=== PATIENT | male | born 1945 | race American Indian/Alaskan Native ===

== ENCOUNTER 2020-12-05 09:06 | Inpatient (IN) | payer MEDICARE, OTHER ==
[~2020-12-05] VITALS: Ht 165.1 cm; Wt 73.4 kg
[2020-12-05] MEDS ORDERED: LIPITOR20 MG PO (12:42)
[2020-12-05] MEDS ORDERED: METOPROLOL SUCC50 MG PO (12:42)
[2020-12-05] MEDS ORDERED: LISINOPRIL10 MG PO (12:43)
[2020-12-05] MEDS ORDERED: ADULT LOW DOSE81 MG PO (12:43)
[2020-12-05] MEDS ORDERED: VITAMIN D3125 MC1 PO (12:44)
[2020-12-05] MEDS ORDERED: DICLOFENAC SODI75 MG PO (12:45)
--- NOTE | 2020-12-05 15:00 | NUR ---
IN WITH PATIENT TO INSERT A SECOND IV. IV PLACED ON RIGHT HAND. PT TOLERATED WELL. PT WAS BALE TO AMBULATE TO RESTROOM WITH SBA. PT ABLE TO AMBULATE BACK TO BED. PT LAYING DOWN. OFFERED DEPENDS BUT PT DENIED, PLACED THEM IN RESTOOM. CALL LIGHT WITHIN REACH. PT DENIES PAIN AND NAUSEA.
--- NOTE | 2020-12-05 15:17 | NUR ---
MED REC COMPLETE
--- NOTE | 2020-12-05 16:08 | NUR ---
IN TO ASSIST PATIENT TO USE THE RESTROOM, HE IS ABLE TO AMBULATE WITH SBA TO RESTROOM AND BACK TO BED. PT LAYING DOWN WATCHING TV. WATER AT BEDSIDE TABLE. CALL LIGHT WITHIN REACH. PT TOLERATED AMBULATION, VITALS STABLE.
--- NOTE | 2020-12-05 17:06 | NUR ---
ASSISTED PT WITH SBA AMBULATION TO THE RESTROOM, PT WALKS SLOW BUT STEADY. VITALS STABLE DURING ACTIVITY. PT BACK IN BED AND LAYING DOWN WATCHING TV. CALL LIGHT WITHIN REACH.
--- NOTE | 2020-12-05 17:14 | EKG ---
[facility] [address] [facility] [place] [address] Signed Normal sinus rhythm Normal ECG No previous ECGs available Confirmed by PORFIRIO PATEL MD ([id number]) on 12/05/2020 5:14:33 PM Electronically Signed By: PORFIRIO PATEL MD 12/05/20 1714 PATIENT NAME: JUAQUINLEXY G Electrocardiogram DATE OF : 43 PHYSICIAN: PORFIRIO PATEL MD REPORT #: [id number] REPORT IS CONFIDENTIAL AND NOT TO BE RELEASED WITHOUT AUTHORIZATION
--- NOTE | 2020-12-05 17:36 | NUR ---
PT ON THE PHONE WITH HIS . PT ARM PROPPED UP WITH A PILLOW TO AVOID IV MED OCCLUSION. ASSESSEMENT COMPLETE. PATIENT DENIES PAIN OR NAUSEA. VERBALIZES HE IS HUNGRY AND I VERBALLY DISCUSSED THE FOOD RESTRICTIONS. ALL QUESTIONS ANSWERED. PATIENT WATCHING TV IN BED. CALL LIGHT IN PLACE.
--- NOTE | 2020-12-05 19:02 | NUR ---
PT AMBULATED TO THE BATHROOM, NOW BACK IN BED WITH SBA. NEW GOWN PLACED. PATIENT LAYING IN BED WATCHING TV. CALL LIGHT WITHIN REACH.
--- NOTE | 2020-12-05 19:30 | NUR ---
[facility] CARE ASSUMED BY THIS SN AT THIS TIME.
--- NOTE | 2020-12-05 19:54 | NUR ---
IN TO ASSIST PATIENT TO THE BATHROOM. PATIENT ABLE TO AMBULATE WITH MINIMAL ASSISTANCE. PATIENT HAD BM WITH BRIGHT RED BLOOD. PATIENT ASSISTED TO BED. PT HR REMAINS IN THE 80'S. RESPIRATIONS ARE EVEN AND UNLABORED, NO COMPLAITNS OF SHORTNESS OF BREATH. PATIENT HAS NO COMPLAINTS OF PAIN AT THIS TIME.
--- NOTE | 2020-12-05 20:30 | NUR ---
PATIENT REQUESTING TYLENOL FOR NECK AND SHOULD PAIN. PATIENT ALSO STATES THAT PAIN RADIATES TO THE BACK OF THE HEAD. PATIENT STATES " I GET THESE HEADACHES EVERY DAY". PATIENT RATES PAIN AT 3/10 WITH AN ACCEPTABLE PAIN LEVEL OF 2/10. PATIENTS PILLOW REPOSITIONED AND TYLENOL GIVEN. PATIENT HAS NO OTHER COMPLAINTS AT THIS TIME.
--- NOTE | 2020-12-05 21:24 | NUR ---
IN TO ASSIST PATIENT TO THE BATHROOM. PATIENT HAD 100MLS OF BLOODY STOOL. PATIENT ABLE TO AMBULATE WITH MINIMAL ASSISTANCE. PATIENT ASSISTED TO BED. NO OTHER COMPLAITNS AT THIS TIME. CALL LIGHT IN PLACE.
--- NOTE | 2020-12-05 21:45 | NUR ---
IN TO ASSIST PATIENT TO BATHROOM. PATIENT IS A STAND BY ASSIST. PATIENT HAD BLOODY LIQUID STOOL. PATIENT ASSISTED TO BED. NO OTHER COMPLAINTS AT THIS TIME.
--- NOTE | 2020-12-05 22:19 | NUR ---
LAB IN TO DRAW BLOOD. PATIENT RESTING IN BED AT THIS TIME. NO COMPLAINTS. CALL LIGHT IN PLACE.
--- NOTE | 2020-12-05 22:48 | NUR ---
RECEIVED CALL FROM DR PATEL WITH ORDERS TO TRANSFUSE 2 UNITS PRBC NOW, CHECK CBC AFTERWARDS AND KEEP 2 UNITS CROSSMATCHED ON STANDBY.
--- NOTE | 2020-12-05 23:00 | NUR ---
BEFORE INFUSION OF PRBC'S, TWO NURSE VERIFICATION AT PT BEDSIDE. VITAL SIGNS COMPLETED BEFORE TRANSFUSION BEGAN. RN AND RN STUDENT REMAIN AT PT BEDSIDE. UPDATED PLAN OF CARE DISCUSSED WITH PT, ALL QUESTIONS ANSWERED. PT REMAINS ALERT AND ORIENTED. WILL CONTINUE TO CLOSELY MONITOR AT PT BEDSIDE.
--- NOTE | 2020-12-05 23:15 | NUR ---
IN WITH PATIENT DURING BLOOD ADMINISTRATION. VITAL SIGNS CHECKED AFTER 15 MINS. HR REMAINS IN THE 80'S. PATIENTS RESPIRATIONS ARE EVEN AND UNLABORED WITH NO COMPLAINTS OF SHORTNESS OF BREATH. PATIENTS OXYGEN SATURATION REMAINS IN THE HIGH 90'S ON RA. PATIENT HAS NO COMPLAINTS AT THIS TIME. PATIENT IS RESTING IN BED WATCHING TV. THIS SN REMAINS IN THE ROOM WITH PATIENT.
--- NOTE | 2020-12-06 00:06 | NUR ---
IN PATIENTS ROOM TO MONITOR. PATIENT REQUESTS TO USE THE BATHROOM. PATIENT ASSISTED TO THE BEDSIDE COMMODE. PATIENT DID NOT HAVE ANY COMPLAINTS OF LIGHTHEADEDNESS WHEN STANDING. PATIENT ABLE TO TRANSFER WITHOUT COMPLAINT. PATIENT HAD 150MLS OF BLOODY STOOL. PATIENT ASSISTED INTO BED. INCREASED WORK OF BREATHING NOTED. PATIENT STATES THAT HE IS FEELING BETTER SINCE THE BLODD ADMINISTATION AND HAS NO COMPLAINTS.
--- NOTE | 2020-12-06 00:15 | NUR ---
PT PLACED ON BEDPAN. PT HAD LARGE BLOODY STOOL. HEART RATE INCREASED INTO THE LOW 100S WITH MOVEMENT IN BED. RN REMAINS AT BED SIDE. BLOOD CONTINUES TO INFUSE. WILL CLOSELY MONITOR.
--- NOTE | 2020-12-06 00:37 | NUR ---
ASSISTED PATIENT ON THE BED ZHU FOR A BM. PATIETNS HR REMAINS IN THE 80'S. PATIENTS RESPIRATIONS ARE EVEN, OXYGEN SATURATION REMAINS IN THE HIGH 90'S. PATIENT HAD LARGE LIQUID BLOODY BM. PATIENT HAS NO COMPLAINTS AT THIS TIME.
--- NOTE | 2020-12-06 00:45 | NUR ---
DR PATEL UPDATED ON PT'S INCREASE IN BLOODY STOOLS OVER THE LAST TWO HOURS AND INCREASED HEART RATE WITH EXERTION. ALSO REPORTED INCREASED RESPIRATIONS WITH MINIMAL EXERTION. NO NEW ORDERS AT THIS TIME. WILL CONTINUE TO MONITOR.
--- NOTE | 2020-12-06 00:53 | NUR ---
SECOND UNIT OF PRBC NOW INFUSING. RN AT BEDSIDE.
--- NOTE | 2020-12-06 01:03 | NUR ---
THIS SN IN ROOM WITH PATIENT DURING BLOOD ADMINISTRATION. PRE VITALS OBTAINED FOR SECOND UNIT OF BLOOD. BLOOD ADMINISTRATION STARTED AND IN PROGRESS. PATIENT RESTING IN BED. HR REMAINS IN THE 80'S. RESPIRATIONS ARE 18 WITH EVEN BREATHING. PATIENTS OXYGEN SATURATION 97% ON ROOM AIR. PATIENT HAS NO COMPLAINTS OF PAIN OR DISCOMFORT AT THIS TIME.
--- NOTE | 2020-12-06 01:46 | NUR ---
Pt back on bedpan. 200 ml of bloody stool. 2 unit of blood continues to infuse at this time. Pt visible from nurses station. call light within reach. will continue to closely monitor. stool.
--- NOTE | 2020-12-06 03:40 | NUR ---
IN TO DRAW BLOOD. PATIENT RESTING IN BED. PATIENT DOES NOT HAVE COMPLAINTS AT THIS TIME. HR REMAINS IN THE 80'S. RESPIRATIONS ARE EVEN. OXYGEN SATURATION REMAINS IN THE HIGH 90'S. CALL LIGHT IN PLACE.
--- NOTE | 2020-12-06 04:31 | NUR ---
IN TO ASSIST PATIENT ONTO BEDPAN. PATIENT HAS 125ML'S OF MIXED URINE AND BLOODY STOOL. LINEN CHANGED. PATIENT REPOSITIONED. PATIENT HAS NO COMPLAINTS OF PAIN OR DISCOMFORT AT THIS TIME. VITAL SIGNS OBTAINED. HR REMAINS IN THE 80'S AT THIS TIME. RESPIRATIONS EVEN AND UNLABORED. CALL LIGHT IN PLACE.
--- NOTE | 2020-12-06 05:16 | NUR ---
IN TO ASSIST PATIENT TO BED SIDE COMMODE. PATIENT TRANSFERED WITH MINIMAL ASSISTANCE. PTS HR ELEVEATED TO 99 DURING TRANSFER. PATIENT DID NOT COMPLAIN OF LIGHTHEADEDNESS OR SHORTNESS OF BREATH. PATIENT ASSISTED TO BED. CALL LIGHT IN PLACE. NO COMPLAINTS AT THIS TIME.
--- NOTE | 2020-12-06 06:09 | NUR ---
IN TO DRAW MORNING LABS. PATIENT RESTING IN BED. NO COMPLAINTS AT THIS TIME. CALL LIGHT IN PLACE.
--- NOTE | 2020-12-06 06:39 | NUR ---
IN TO ASSIST PATIENT TO BE SIDE COMMODE. PT ABLE TO TRANSFER WITH MINIMAL ASSISTANCE. PT HR ELEVATED TO HIGH 90'S DURING TRANSFER. PATIENT HAD NO COMPLAITNS OF DIZZINESS. PATIENT ASSISTED TO BED. NO COMPLAITNS AT THIS TIME. CALL LIGHT IN PLACE.
--- NOTE | 2020-12-06 07:11 | CONS ---
[facility] [address] [place], [place] [address] Signed DATE OF CONSULTATION: 12/05/2020 CHIEF COMPLAINT: Rectal bleeding. HISTORY OF PRESENT ILLNESS: Elan is a 75-year-old gentleman, who I have met in the recent past when I took care of his . He has had four episodes of rectal bleeding in the last day. He has no pain. He went to the [facility]. They asked him to come to the emergency room for evaluation. He was found to be anemic with hemoglobin 8.7 and a mean cell volume of 74. BUN and creatinine are fine. Other labs fine. He told me of his colonoscopy 12-[address] Desir. He thinks he took antibiotics for diverticulosis. He may have had colonic polyps. No followup colonoscopy to his knowledge. He told me he declined surgery because all his friends after the surgeries. However, he thought he might consider upper and lower endoscopy. He has been admitted to the Internal Medicine Service. He has been hemodynamically stable. No further rectal bleeding at this time. PAST MEDICAL HISTORY: Coronary artery disease, MT, possible colonic polyps, possible diverticulosis, chronic right knee pain, hypertension, hypercholesterolemia, hard of hearing, seasonal allergies, chronic right otitis media, decreased vitamin D, and he has glucose intolerance. PAST SURGICAL HISTORY: Includes cardiac stent and colonoscopy 12 to [address] Desir. SOCIAL HISTORY: He quit smoking. Apparently, he had used alcohol in the past, I do not know about currently. He is to his Marita at . He goes to the [facility] mainly with Darrell Sahni. Dr. Scott Gutierrez is his respooler and Dr. Ildefonso Tate is his orthopedic surgeon. 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 FAMILY HISTORY: Mom of lymphoma. Sister had coronary artery disease. REVIEW OF SYSTEMS: He had 10 systems reviewed and we added the above findings as well as reviewing his notes from the [facility]. He did tell me he is not particularly interested in surgeries. ALLERGIES: Electronically Signed By: IRWIN CROOKS MD 12/06/20 0711 PATIENT NAME: ELAN REZA CONSULTATION DATE OF : 43 REPORT #: [id number] PHYSICIAN: IRWIN CROOKS MD PCP: [facility] REPORT IS CONFIDENTIAL AND NOT TO BE RELEASED WITHOUT AUTHORIZATION [facility] [address] [place], [place] [address] Signed Penicillin cause anaphylaxis. MEDICATIONS: 1. Aspirin. 2. Atorvastatin. 3. Vitamin D. 4. Diclofenac. 5. Lisinopril. 6. Metoprolol. PHYSICAL EXAMINATION: VITAL SIGNS: His blood pressure is 129/78, heart rate 79, respiratory rate 16, temperature is 98.7, and he is 98% on room air. He is 5 feet 5 inches and 72 kg. GENERAL: Elan is a 75-year-old gentleman, appears healthy and at his stated age. He is hard of hearing, but he is a pretty good historian. LUNGS: Clear to auscultation bilaterally. HEART: Regular rate and rhythm, without murmurs. ABDOMEN: Soft, nontender. : We did not perform rectal exam currently. LABORATORY DATA: His white blood cell count 6.5, hemoglobin is 8.7, mean cell volume 74, and platelets 265. BUN 14, creatinine 0.7. COVID negative. INR 1. Liver function tests negative. Albumin is 4.9. RADIOGRAPHIC STUDIES: None. ASSESSMENT/PLAN: Elan is a 75-year-old gentleman, who presents with rectal bleeding today. He has been admitted to the Internal Medicine Service. I have been asked to see him for upper and lower endoscopy. I had a long discussion with Elan regarding the above. He recalls the colonoscopy quite well. He knows there is risk including, but not limited to gas bloating, crampy abdominal pain, bleeding, perforation requiring surgery, and missed diagnosis. Also, because of his advanced age, he would need monitored anesthesia care. He is willing to go through the liquid diet and bowel prep today. I have two surgeries tomorrow morning already scheduled, and he would be sometime in the afternoon. He has expressed understanding and agrees with the above plan. In the meantime, we will try to track down his records from his respooler as well. Irwin Crooks MD Electronically Signed By: IRWIN CROOKS MD 12/06/20 0711 PATIENT NAME: ELAN REZA CONSULTATION DATE OF : 43 REPORT #: [id number] PHYSICIAN: IRWIN CROOKS MD PCP: [facility] REPORT IS CONFIDENTIAL AND NOT TO BE RELEASED WITHOUT AUTHORIZATION [address] [address] Signed ALB/MODL /[id number] cc: MD Scott Guzman MD Bryan Lee Canwell, PA Andrew L Bower, MD Copies: ILDEFONSO TATE MD, JEFFREY M MD CANWELL, BRYAN LEE PA BOWER, ANDREW L MD ~ Electronically Signed By: IRWIN CROOKS MD 12/06/20 0711 PATIENT NAME: REZAELAN CONSULTATION DATE OF : 43 REPORT #: [id number] PHYSICIAN: IRWIN CROOKS MD PCP: [facility] REPORT IS CONFIDENTIAL AND NOT TO BE RELEASED WITHOUT AUTHORIZATION
--- NOTE | 2020-12-06 08:04 | NUR ---
IN PATIENT'S ROOM FOR ASSESSMENT, VITALS, AND TO HELP PT UP TO BSC. PT HAS ADDITIONAL 25 ML BURGUNDY LIQUID STOOL AND VOIDS. PT ASKING, " CAN I HAVE SOME COFFEE?" EDUCATED PATIENT ON NEED TO STAY NPO FOR UPCOMING UPPER/LOWER SCOPE THAT WILL HAPPEN TODAY UNDER DR. CROOKS. PATIENT STATES, " CAN DR. CROOKS CALL MY ? SHE WATNS TO KNOW WHY WE HAVEN'T TAKEN CARE OF THIS BLEEDING YET." DISCUSSED THIS WITH PATIENT AND WILL CALL PT'S AND UPDATE HER ON PATIENT'S STATUS AND PLAN FOR THE DAY. HR IN THE 80-90s SINUS. LAST BP 145/85. PT DENIES PAIN. WILL CONTINUE TO MONITOR.
--- NOTE | 2020-12-06 10:00 | NUR ---
DR. PATEL IN ROOM TO SEE PATIENT. PATIENT EXPRESSING THAT HE IS HOPEFUL TO GO HOME LATER TODAY. DR. PATEL AND PT MAKING A PLAN TO SEE WHAT THE SCOPES REVEAL AND THEN DECIDING WHAT HE WILL DO. PT DENIES PAIN, DISCOMFORT, OR CHEST PAINS.
--- NOTE | 2020-12-06 11:22 | NUR ---
HYDROLOGY TECHNICIAN IN ROOM TO SEE PATIENT. PATIENT NOW BEING TAKEN FOR SCOPE. PT WILL COME BACK TO THIS ROOM AFTER SCOPE. DENTURES AND PATIENT'S WATCH AND RING LEFT AT BEDSIDE TABLE.
--- NOTE | 2020-12-06 12:29 | NUR ---
PATIENT RETURNS FROM UPPER AND LOWER SCOPE AND CARE OF PATIENT RESUMED. PT IS DROWSY BUT AWAKENS EASILY. PT DRIFTS BACK TO SLEEP QUICKLY. SP02 IS 100% ON 2 L NC. WILL TITRATE DOWN TOLERATED. REPORT RECEIVED FROM SALES CENTER ASSOCIATE AND DUST MILL OPERATOR. CONTINUE TO MONITOR.
--- NOTE | 2020-12-06 12:59 | NUR ---
12/06/20 1259 [place] [id number]: THIS RN ASSISTED TUCKING PT INTO CCU RM 129. VERBAL REPORT GIVEN TO DAMON LANG FROM [employer] ANALYSTDAMON ZACARIAS AND KARLENE BERGMAN. PT TRANSFERRED FROM STRETCHER TO BED VIA DRAWSHEET, VSS. DAMON LANG STATES SHE IS COMFORTABLE WITH JEEP MECHANIC EXITING AT THIS TIME.
--- NOTE | 2020-12-06 14:11 | OR ---
[facility] [address] [place], [place] [address] Signed DATE OF OPERATION: 12/06/2020 SURGEON: Irwin Chow MD PREOPERATIVE DIAGNOSES: 1. Rectal bleeding. 2. Anemia. 3. Diverticulosis. 4. Hiatal hernia. 5. Gastroesophageal reflux disease. 6. Daily use of aspirin and diclofenac. POSTOPERATIVE DIAGNOSES: 1. Moderate-sized nonbleeding cardiac gastric ulcer. 2. Moderate-sized hiatal hernia (40-34 cm). 3. Tiny epiphrenic diverticulum. 4. Moderate pandiverticulosis. 5. Small internal and external hemorrhoids. 6. 4 mm polyp at hepatic flexure. 7. Right superior prostate nodule adherent to rectum. PROCEDURES: 1. Esophagogastroduodenoscopy with CLOtest and biopsies of the antrum ulcer and GE junction. 2. Colonoscopy without biopsies. ESTIMATED BLOOD LOSS: None. INDICATIONS: Elan is a 75-year-old gentleman I know because I have helped take care of his . Elan came in to the hospital because he had four episodes of rectal bleeding the day of admission. He started at the [facility] and he was sent into the emergency room. He said he was having no pain in the abdomen or around the anus or rectum. No hematemesis. Although, we found he has a hiatal hernia and acid reflux. He takes no medication for the stomach. In addition, he takes diclofenac each day because of his arthritis, particularly right knee pain. He also takes aspirin for his heart in his single cardiac stent. He also had a colonoscopy around in [address] Desir. That revealed his fairly significant diverticulosis. He had been admitted to the Internal Medicine service and I have been asked to see him as a general surgeon on-call. I met Electronically Signed By: IRWIN CHOW MD 12/06/20 1411 PATIENT NAME: ELAN REZA OPERATIVE REPORT DATE OF : 43 REPORT #: [id number] PHYSICIAN: IRWIN CHOW MD PCP: [facility] REPORT IS CONFIDENTIAL AND NOT TO BE RELEASED WITHOUT AUTHORIZATION [facility] [address] [place], [place] [address] Signed with Elan here in the hospital. Unfortunately, his fell and had fallen, broke her femur and she is not able to get in the hospital at this time. However, Elan does talk with her frequently, has me call over as well. He made it very clear to myself and everyone that he does not want any surgeries. His Marita is aware of that as well. We were able to put him through his bowel prep yesterday and he seemed to take about half of it. He still had some bloody discharge from the anus. He did get 2 units of packed red blood cells. However, he has been hemodynamically stable. I explained to Elan the concept of the upper and lower endoscopy. He had both done back in 2003. He recalls that fairly well. He knows there is risk including, but not limited to gas bloating, crampy abdominal pain, bleeding, perforation requiring surgery, and missed diagnosis. Also because of the advanced age and his current situation, we asked that an anesthesia provider help us with increased monitoring and sedation with propofol. He had expressed understanding and wished to proceed. PROCEDURE NOTE: Elan was taken into the endoscopy suite and placed in the supine semi-recumbent position. A bite block was utilized for the case. He was given IV sedation per nurse seniour insight manager. The adult gastroscope was introduced and advanced under direct visualization of camera. He has a very tiny epiphrenic diverticulum. Just minimal disruption to his Z-line. We could see that he had a moderate-sized hiatal hernia. We measured that from 40 back to 34 cm. There was no blood whatsoever in the stomach or the proximal small bowel. The duodenum and pyloric channel were completely unremarkable. The stomach does show moderate inflammatory changes. We took a biopsy of the antrum for CLOtest as well as pathologic review. When we retroflexed the scope, we could see a moderate sized but nonbleeding hernia up near the cardia. It probably is on the junction of the cardia with the body of the stomach. It is toward the lesser curve side. We went and took a biopsy of that area. We withdrew the scope back up through the area of the hiatal hernia. We saw some indurated tissue just above the Z-line and so we took two biopsies of that area for pathologic review. No obvious gastric or esophageal varices. After this, the gas had been suctioned out and the gastroscope removed. Elan tolerated the upper endoscopy quite well. Elan was then rotated into the left lateral decubitus position. He was maintained on IV sedation with propofol per our nurse seniour insight manager. A digital rectal exam was performed. He does have moderate external hemorrhoids. We later found that he has minimal internal hemorrhoids. Both were nonbleeding. I can feel his prostate gland quite indurated. There is a nodule in the superior right side. The rectum is a bit fixed to that spot and I wonder if that should be more fully evaluated by urologist. The prostate gland is fairly indurated but not particularly enlarged. It is slightly enlarged. After this, the adult colonoscope was introduced and advanced under direct visualization of camera. We made our way up to the sigmoid colon all the way back to the cecum itself. There was blood throughout his colon. It is somewhat fresh. He has pandiverticulosis. Of Electronically Signed By: IRWIN CHOW MD 12/06/20 1411 PATIENT NAME: ELAN REZA OPERATIVE REPORT DATE OF : 43 REPORT #: [id number] PHYSICIAN: IRWIN CHOW MD PCP: [facility] REPORT IS CONFIDENTIAL AND NOT TO BE RELEASED WITHOUT AUTHORIZATION [facility] [address] [place], [place] [address] Signed course, it has the greatest concentration in the sigmoid colon. We found his appendiceal orifice and the ileocecal valve. The scope was then slowly withdrawn. Overall his prep was good. We irrigated and suctioned out the fluid as we went. We spent quite a bit of time in the left colon and sigmoid colon as well. We never could find any active bleeding. He has just a tiny 4 mm polyp and had a hepatic flexure. We left that intact given his current GI bleed. Once we got in the rectum, the scope had been retroflexed and there was no additional pathology noted above the anal canal. After this, the gas was suctioned out, the colonoscope removed. Elan tolerated the procedure quite well. Irwin Chow MD ALB/MODL /[id number] cc: Irwin Chow MD [facility] Copies: IRWIN CHOW MD ~ Electronically Signed By: IRWIN CHOW MD 12/06/20 1411 PATIENT NAME: ELAN REZA OPERATIVE REPORT DATE OF : 43 REPORT #: [id number] PHYSICIAN: IRWIN CHOW MD PCP: [facility] REPORT IS CONFIDENTIAL AND NOT TO BE RELEASED WITHOUT AUTHORIZATION
--- NOTE | 2020-12-06 14:30 | NUR ---
PATIENT UP TO BSC TO VOID AND HAD ANOTHER BURGUNDY LIQUID BM WITH WHAT LOOKED TO BE CLOTS. DISCUSSED WITH PATIENT THE PLAN TO HAVE PATIENT HAVE A NUC MED SCAN ON TUESDAY FOR THE TAGGED RED BLOOD CELL SCAN. PT AGREEABLE AFTER DISCUSSION OF WHAT THIS WOULD ENTAIL. PT DOES HAVE RESERVATIONS ABOUT STAYING IN THE HOSPITAL ANY LONGER, BUT AGREES TO STAY AT THIS TIME. CONTINUE TO MONITOR.
--- NOTE | 2020-12-06 16:32 | NUR ---
PATIENT REMAINS RESTING IN BED. CLEAR LIQUID TRAY PROVIDED FOR PATIENT. PT DENIES WANTING TO GET UP INTO CHAIR AND STATES HE IS MORE COMFORTABLE IN THE BED. PT ALSO TALKS WITH HIS ON THE PHONE. IVF CONTINUE AT 100 ML/HR.
--- NOTE | 2020-12-06 17:31 | NUR ---
PATIENT UP TO VOID AND THEN NEEDS TO USE BSC WELL HE BECOMES SOMEWHAT INCONTINENT OF STOOL. STOOL REMAINS A BURGUNDY LIQUID WITH EVIDENCE OF CLOTS NOTED. PT DENIES FEELING ANY DIFFERENT, AND STATES HE WILL TELL THIS RN IF HE STARTS TO FEEL ANY WORSE OR LIGHTHEADED, OR DIZZY. PT BACK TO BED TO REST. WILL CONTINUE TO MONITOR.
--- NOTE | 2020-12-06 18:44 | NUR ---
DR. HAMILTON IN UNIT AND GIVEN AN UPDATE ON PATIENT'S BLOODY STOOLS. DR. CROOKS CALLED AND ALSO UPDATED. CBC ORDERED FOR 1999. NO FURTHER ORDERS AT THIS TIME. PT HAS NOW HAD 3 BURGUNDY LIQUID STOOLS WITH SOME BLOOD CLOTS EVIDENT IN STOOL. PT IS HAVING INCONTINENCE OF THIS STOOL. REMINDED PATIENT TO USE CALL LIGHT AND TO NOT GET UP ON HIS OWN FOR FALL RISK PREVENTION. PT AGREEABLE. PT REMAINS ON CLEAR LIQUIDS. CONTINUE TO MONITOR.
--- NOTE | 2020-12-06 20:45 | NUR ---
PT CALLS TO USE BSC, UP TO VOID AND HAD SMALL LIQUID RED STOOL. APPROX 50 ML. BACK TO BED. HR REMAINED IN 80'S WHILE UP.
--- NOTE | 2020-12-06 21:28 | NUR ---
CALL TO DR PATEL AND DR CROOKS TO UPDATE WITH RECENT LAB RESULTS. ORDER GIVEN TO TRANSFUSE 1 UNIT PRBC.
--- NOTE | 2020-12-06 22:15 | NUR ---
PRBC'S STARTED INFUSING. PT INFORMED, DENIES NEEDS AT THIS TIME.
--- NOTE | 2020-12-07 | NUR ---
BLOOD HAS COMPLETED INFUSING. PT UP TO USE URINAL AT BEDSIDE WITH ASSIST. ASSESSMENT DONE, PT DENIES NEEDS.
--- NOTE | 2020-12-07 02:00 | NUR ---
PT HAS BEEN GETTING UP APPROX EVERY 30 MINUTES TO VOID 100-200ML AT A TIME AND THEN BACK TO BED. HR REMAINS STEADY WHILE UP, PT IS SEEMING MORE SOB WITH ACTIVITY.
--- NOTE | 2020-12-07 03:15 | NUR ---
PT ASSISTED UP TO USE URINAL, WAS SLIGHTLY SOB WITH MOVING, CRACKLES HEARD IN BASES.
--- NOTE | 2020-12-07 04:15 | NUR ---
PT CALLS TO USE URINAL, ASSISTED WITH URINAL ASSESSMENT DONE AND PT BACK TO BED.
--- NOTE | 2020-12-07 06:30 | NUR ---
PT UP TO VOID AND THEN BACK TO BED, ASKING ABOUT BREAKFAST AND PLAN FOR THE DAY.
--- NOTE | 2020-12-07 08:03 | NUR ---
DR. CROOKS IN ROOM TO SEE PATIENT. PATIENT ASKING, "WHEN CAN I EAT? AND WHEN CAN I GO HOME?" DISCUSSED BOTH OF THESE THINGS WITH DR. CROOKS. OKAY FOR PATIENT TO HAVE A SOFT DIET AND WILL ORDER PATIENT SOME SOFT FOODS. PT GIVEN COFFEE AND MORNING MEDICATIONS. PT UP TO VOID AND HAS A SMALL AMOUNT OF BURGUNDY LIQUID STOOLS. H/H STABLE THIS AM. PLAN FOR TAGGED RED BLOOD CELL SCAN TOMORROW WITH NUCLEAR MEDICINE. PT ASKS DR. CROOKS TO PLEASE CALL HIS TO UPDATE HER ON PLAN. PT NOW SITTING IN CHAIR. WILL CONTINUE TO MONITOR.
--- NOTE | 2020-12-07 08:15 | NUR ---
DR. HAMILTON IN ROOM TO SEE PATIENT. NO FURTHER ORDERS AT THIS TIME. PT IN PLEASANT MOOD.
--- NOTE | 2020-12-07 09:19 | NUR ---
PATIENT UP TO BATHROOM TO VOID AND HAS ADDITIONAL LIQUID BM THAT IS BURGUNDY STILL. UNABLE TO VISUALIZE WELL DUE TO HAPPENING IN THE TOILET. PT THEN GIVEN BED BATH AND TOLERATED WELL. BACK TO BED TO REST. PT IS HOPEFUL HIS IS COMING TO VISIT HIM SOON. CONTINUE TO MONITOR.
--- NOTE | 2020-12-07 12:05 | NUR ---
PATIENT UP TO VOID AND ONLY VOIDS 150 ML OF PRETTY DILUTE URINE. ASKED PATIENT IF HE FEELS LIKE HE IS ABLE TO EMPTY HIS BLADDER, TO WHICH HE STATES HE DOES NOT FEEL LIKE HE DOES AND FIGHTS THIS ISSUE AT HOME. BLADDER SCANNED FOR 438 ML. PT STATES HE DOESN'T FEEL LIKE HE NEEDS TO VOID ANY FURTHER. DISCUSSED WITH PT THE POTENTIAL NEED FOR HIM TO FOLLOW UP WITH UROLOGY. WILL CONTINUE TO MONITOR.
--- NOTE | 2020-12-07 12:50 | NUR ---
DR. HAMILTON CALLED AND UPDATED ON PATIENT AND HIS URINARY RETENTION. NO FURTHER ORDERS AT THIS TIME. PT RESTING IN BED.
--- NOTE | 2020-12-07 17:30 | NUR ---
ASSISTED PATIENT UP TO THE EDGE OF THE BED TO EAT HIS DINNER. PATIENT DENIES ANY OTHER NEEDS AT THIS TIME. WILL CONTINUE TO CLOSELY MONITOR.
--- NOTE | 2020-12-07 17:48 | NUR ---
ASSIST PATIENT UP TO USE THE URINAL AT THE BEDSIDE. PT TOLERATED WELL WITH MINIMAL ASSISTANCE. ASSISTED PT BACK TO BED AND RETURNED HIS BLANKETS. PT ATE DINNER. PT LAYING IN BED WITH TV BACKGROUND NOISE, HEAD OF BED ELEVATED. EYED CLOSED. CALL LIGHT WITHIN REACH. WILL CONTINUE TO MONITOR CLOSELY.
--- NOTE | 2020-12-07 18:27 | NUR ---
ASSISTED PATIENT UP TO USE THE URINAL. PATIENT STEADY ON HIS FEET. PATIENT ASISSTED BACK TO BED WITH JUST CORD MANAGEMENT. PATIENT REQUESTED COFFEE. HALF A CUP OF COFFEE PROVIDED AT THIS TIME. CALL LIGHT IN REACH. WILL CONTINUE TO CLOSELY MONITOR.
--- NOTE | 2020-12-07 19:42 | NUR ---
REPORT RECEIVED FROM DAY SHIFT. PT UP TO USE URINAL THEN BACK TO BED, NO REQUESTS. HR 70'S.
--- NOTE | 2020-12-07 20:37 | NUR ---
UP TO VOID, BACK TO BED. ASSESSMENT DONE.
--- NOTE | 2020-12-08 03:50 | NUR ---
UP TO VOID, BACK TO BED. ASSESSMENT DONE.
--- NOTE | 2020-12-08 05:15 | NUR ---
UP TO VOID, BACK TO BED, NO REQUESTS.
--- NOTE | 2020-12-08 07:40 | NUR ---
PATIENT UP TO CHAIR AND HELPED TO VOID TO URINAL. PT ALSO HAS INCONTINENCE IN ATTENDS AND THESE WERE CHANGED. PT TO HAVE HIS TAGGED RED BLOOD CELL SCAN TODAY AROUND 1000. PT IS EAGER TO D/C HOME AFTER THIS. WILL CONTINUE TO MONITOR.
--- NOTE | 2020-12-08 08:18 | NUR ---
pt up in chair, ate breakfast. Linens changed. vs done no other needs at this time. call light with in reach
--- NOTE | 2020-12-08 08:20 | NUR ---
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 Pt does the house hold chores and cooking. Family assist them with the 105 pound dog, gettin in and out of the house. Pt cont. to drive and shop. He denies needs and plans on dc to home.
--- NOTE | 2020-12-08 08:30 | NUR ---
ASSESSMENT COMPLETE. PT HAS FINE CRACKLES NOTED TO BILATERAL BASES. ENCOURAGING IS USE. PT EATS MUCH OF HIS BREAKFAST HE CAN, BUT ONLY EATS ABOUT 50%. PT DENIES HAVING ANY ABDOMINAL PAIN. PT HAS NOT HAVE A BLOODY BMs SINCE THE PRIOR DAY. LABS PENDING. WILL CONTINUE TO [facility].
--- NOTE | 2020-12-08 09:19 | NUR ---
CASE MANAGMENT IN TO SEE PATIENT. PT REMAINS SITTING IN CHAIR. PT NOW ON THE PHONE WITH HIS BROTHER. HR 80-90s. PT NOTED TO BE USING IS BY HIMSELF.
--- NOTE | 2020-12-08 09:40 | NUR ---
taxi proprietor and rn gave pt bed bath, new gown. no other needs at this time
--- NOTE | 2020-12-08 10:00 | NUR ---
[facility] MED ADDICTION PSYCHIATRIST IN ROOM TO DRAW BLOOD AND THEN WILL TAKE PATIENT DOWN TO N[facility] MED SCAN. PT WILL TRANSFER VIA WHEELCHAIR FOR THIS STUDY.
--- NOTE | 2020-12-08 10:29 | NUR ---
PATIENT TAKEN DOWN TO [facility] FOR SCAN.
--- NOTE | 2020-12-08 11:00 | NUR ---
Clinicals sent to [facility] per requests from his provider.
--- NOTE | 2020-12-08 11:42 | NUR ---
PATIENT RETURNS FROM [facility] MED SCAN AND TOLERATED WELL. PT BACK IN ROOM AND RESTING IN BED. ASSESSMENT AND VITALS COMPLETE.
--- NOTE | 2020-12-08 11:57 | NUR ---
PATIENT REQUESTING TYLENOL FOR HIS RIGHT KNEE PAIN. PT RATES IT A 2/10 AT THIS TIME.
--- NOTE | 2020-12-08 12:25 | NUR ---
PATIENT UP TO CHAIR TO EAT HIS LUNCH. PT IS HAVING MORE KNEE PAIN TODAY AND IT'S HARDER FOR HIM TO PUT WEIGHT ON IT TODAY. WAITING REST RESULTS FROM NUC MED SCAN.
[2020-12-08] MEDS ORDERED: PANTOPRAZOLE SO40 MG PO (13:03)
--- NOTE | 2020-12-08 14:36 | NUR ---
CONNECTED WITH PT HE WAS LEAVING FOLLOWING DC. GAVE ENCOURAGEMENT, PT ACKNOWLEGED.
--- NOTE | 2020-12-09 17:11 | PATH ---
[facility] [address] [place], [place] [address] Signed SPECIMEN(S): A ANTRUM/PYLORUS SPECIMEN(S): B CARDIA BIOPSY SPECIMEN(S): C GE JUNCTION SPECIMEN SOURCE: A. ANTRUM/PYLORUS B. CARDIA BIOPSY C. GE JUNCTION CLINICAL HISTORY: Pre: Severe anemia, GI bleed, possible diverticular bleed. Post: Hiatal hernia, gastritis, small epiphrenic esophageal diverticula, polyp at hepatic flexure, gastric ulcer/cardia, pandiverticulosis, minimal internal hemorrhoids. MICROSCOPIC DESCRIPTION: Histologic sections of all submitted blocks are examined by light microscopy. These findings, together with the gross examination, support the pathologic diagnosis. FINAL PATHOLOGIC DIAGNOSIS: A. Stomach, antrum/pylorus, biopsy: - Antral/oxyntic mucosa with mild chronic, inactive gastritis and focal complete intestinal metaplasia. - Negative for Helicobacter organisms on HE stain. - Negative for dysplasia or malignancy. B. Stomach, cardia, biopsy: - Cardia-oxyntic type mucosa with focal active inflammation and reactive mucosal changes. - Negative for Helicobacter organisms on HE stain. - Negative for dysplasia or malignancy. C. Gastroesophageal junction, biopsy: - Squamocolumnar junctional mucosa with no histopathologic abnormality. - Negative for intestinal metaplasia, dysplasia, or malignancy. NAL:cml:C2NR GROSS DESCRIPTION: Three specimens are received in three containers, labeled "LM." A. The specimen, labeled "LM, 1," and designated on the requisition "antrum/pylorus," is received in formalin and consists of one valenzuela soft tissue fragment that measures 0.3 cm in greatest dimension. The specimen is entirely submitted in cassette (A1). PATIENT NAME: LEXY REZA PATHOLOGY DATE OF : 43 REPORT #: [id number] PHYSICIAN: BILLY PATHOLOGY PCP: [facility] REPORT IS CONFIDENTIAL AND NOT TO BE RELEASED WITHOUT AUTHORIZATION [facility] [address] [place], [place] [address] Signed B. The specimen, labeled "LM, 2," and designated on the requisition "gastric cardia ulcer at 40 cm," is received in formalin and consists of one valenzuela soft tissue fragment that measures 0.3 cm in greatest dimension. The specimen is entirely submitted in cassette (B1). C. The specimen, labeled "LM, 3," and designated on the requisition "GE junction," is received in formalin and consists of two valenzuela soft tissue fragments that measure 0.2-0.3 cm in greatest dimension. The specimen is entirely submitted in cassette (C1). AT (under the direct supervision of a pathologist) The Gross Description was prepared using a voice recognition system. The report was reviewed for accuracy; however, sound-alike word errors, addition and/or deletions may occur. If there is any question about this report, please contact Client Services. PERFORMING LABORATORY: The technical component was performed by [facility] [address] (Performance Management Consultant: Karen Goetz MD; CLIA# [id number]). [facility] [address] [address] (CLIA# [id number]). Diagnostician: Valeria Vazquez MD Pathologist Electronically Signed 12/09/2020 Copies: ~ PATIENT NAME: LEXY REZA PATHOLOGY DATE OF : 43 REPORT #: [id number] PHYSICIAN: BILLY FRANKS PCP: [facility] REPORT IS CONFIDENTIAL AND NOT TO BE RELEASED WITHOUT AUTHORIZATION
== END 2020-12-08 14:22 | disposition home or self-care (01) | DRG 379 ==
LOC: ED 09:06 → CCU 11:58
PROVIDERS: Colon & Rectal Surgery; ADMIT Internal Medicine; ATTEND Internal Medicine
PROC: 30233N1 Transfusion of Nonautologous Red Blood Cells into Peripheral Vein, Percutaneous Approach (ICD-10-PCS; 2020-12-05)
PROC: 0DJD8ZZ Inspection of Lower Intestinal Tract, Via Natural or Artificial Opening Endoscopic (ICD-10-PCS; 2020-12-06)
PROC: 0DB48ZX Excision of Esophagogastric Junction, Via Natural or Artificial Opening Endoscopic, Diagnostic (ICD-10-PCS; principal; 2020-12-06 11:20)
PROC: 0DB68ZX Excision of Stomach, Via Natural or Artificial Opening Endoscopic, Diagnostic (ICD-10-PCS; 2020-12-06 11:20)
DX: K57.31 Diverticulosis of large intestine without perforation or abscess with bleeding (principal); K29.51 Unspecified chronic gastritis with bleeding; D50.0 Iron deficiency anemia secondary to blood loss (chronic); K25.9 Gastric ulcer, unspecified as acute or chronic, without hemorrhage or perforation; K44.9 Diaphragmatic hernia without obstruction or gangrene; Z20.822 Contact with and (suspected) exposure to COVID-19; K63.5 Polyp of colon; N40.2 Nodular prostate without lower urinary tract symptoms; I25.10 Atherosclerotic heart disease of native coronary artery without angina pectoris; I25.2 Old myocardial infarction; K64.4 Residual hemorrhoidal skin tags; K64.8 Other hemorrhoids; G89.29 Other chronic pain; M25.561 Pain in right knee; H91.90 Unspecified hearing loss, unspecified ear; E74.39 Other disorders of intestinal carbohydrate absorption; I10 Essential (primary) hypertension; E78.00 Pure hypercholesterolemia, unspecified; H66.91 Otitis media, unspecified, right ear; Z95.5 Presence of coronary angioplasty implant and graft; Z87.891 Personal history of nicotine dependence; Z88.0 Allergy status to penicillin; Z79.899 Other long term (current) drug therapy; Z79.1 Long term (current) use of non-steroidal anti-inflammatories (NSAID); Z79.82 Long term (current) use of aspirin
CPT/HCPCS: 36415; 78278; 80048; 80053; 82397; 82728; 83540; 83735; 84100; 84153; 84466; 85025; 85610; 85730; 86677; 86850; 86900; 86901; 86920; 93005; 93010; 99285; A9560; C9113; C9803; J2001; J2704; J3010; J7040; J7121; U0003

== ENCOUNTER 2021-04-27 16:32 | Inpatient (IN) | payer MEDICARE, OTHER ==
[~2021-04-27] VITALS: Ht 165.1 cm; Wt 72.2 kg
[~2021-04-27 16:32] MED LIST: ADULT LOW DOSE81 MG PO; DICLOFENAC SODI75 MG PO; LIPITOR20 MG PO; LISINOPRIL10 MG PO; METOPROLOL SUCC50 MG PO; PANTOPRAZOLE SO40 MG PO; VITAMIN D3125 MC1 PO
--- NOTE | 2021-04-27 21:20 | NUR ---
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 ALERT AND ORIENTED. FOUR PERSON ASSIST TO BED FROM STRETCHER. ORDERS RECEIVED. KERR PATENT WITH YELLOW URINE. PT REPORTS RIGHT HIP PAIN 01/15. PRN FOR PAIN ADMINISTERED PER EMAR. SCHEDULED MEDS ADMINISTERED. DR. RICHEY CALLED FOR MAINTENANCE FLUIDS GIVEN PT NPO STATUS AT DC. NEW TELEPHONE ORDERS RECEIVED VERIFIED WITH READ BACK METHOD. DAMON MATTHEW IN ROOM FOR ADMISSION HISTORY.
--- NOTE | 2021-04-27 22:35 | NUR ---
ASSESSMENT COMPLETE. PT REPORTS RIGHT HIP PAIN 5/10. PRN FOR PAIN ADMINISTERED PER EMAR. HEEL PROTECTORS PLACED. BLE CMS INTACT. BRISK CAP REFILL NOTED. PT ORIENTED TO ROOM AND NURSE CALL LIGHT. DENIES QUESTIONS OR CONCERNS AT THIS TIME. CALL LIGHT IN REACH.
--- NOTE | 2021-04-27 23:39 | NUR ---
PT RESTING IN BED WITH EYES CLOSED. RESPIRATIONS EVEN. NO APPARENT DISTRESS.
--- NOTE | 2021-04-28 01:40 | NUR ---
VS AND I&O COMPLETE. PRN FOR PAIN ADMINISTERED FOR RIGHT HIP PAIN PER ORDER. PT NPO. ASSESSMENT COMPLETE. CMS INTACT. BRISK CAP REFILL NOTED. HP IN PLACE. KERR PATENT WITH CONCENTRATED YELLOW URINE. IVF INFUSING WNL. PT DENIES FURTHER NEEDS. CALL LIGHT IN REACH.
--- NOTE | 2021-04-28 02:22 | EKG ---
[facility] [address] [facility] [place] [facility] [place] [address] Signed Normal sinus rhythm Nonspecific ST abnormality Abnormal ECG When compared with ECG of 05-DEC-2020 13:04, No significant change was found Confirmed by PORFIRIO PATEL MD ([id number]) on 04/28/2021 2:21:52 AM Electronically Signed By: PORFIRIO PATEL MD 04/28/21221 PATIENT NAME: REZALEXY Electrocardiogram DATE OF : 43 PHYSICIAN: PORFIRIO PATEL MD REPORT #: [id number] REPORT IS CONFIDENTIAL AND NOT TO BE RELEASED WITHOUT AUTHORIZATION
--- NOTE | 2021-04-28 03:15 | NUR ---
PT RESTIN GIN BED WITH EYES CLOSED. RESPIRATIONS EVEN. NO APPARENT DISTRESS.
--- NOTE | 2021-04-28 05:30 | NUR ---
PRE PROCEDURE WIPE DOWN COMPLETE. PT REPORTS SOME PAIN WITH WIPE DOWN BUT REFUSES PRN FOR PAIN AT THIS TIME. CMS INTACT BLE. HP IN PLACE. KERR PATENT WITH CONCENTRATED URINE. IVF INFUSING WNL. PT ON PHONE TO UPDATE .
--- NOTE | 2021-04-28 06:26 | NUR ---
PT OFF THE FLOOR WITH OR NURSE.
--- NOTE | 2021-04-28 07:32 | NUR ---
ER note and Consult for surgery faxed to Jada at [facility].
--- NOTE | 2021-04-28 07:33 | NUR ---
this rn received report from adam newman. pt is in surgery at this time
--- NOTE | 2021-04-28 08:30 | NUR ---
Spoke with Elan and his , Marita. Pt has recently returned from surgery and listens while we talk. He does answer some questions, but answers most. They live on [address] in a 1 [address] home with ramp. Both use walkers. Marita asks about rehab as she feels she is not able accepting, pt then to go to [facility]. Sent text to Dr. Tate asking if he planned on this pt going to a SNF and for how long as stating she cannot care for him at home. Will go ahead and fax chart to [facility] as, at this time, I am only able to place pt's to one SNF due to Covid Pandemic. Received return text from Dr. Tate,pt will need snf for 6-8 weeks.
--- NOTE | 2021-04-28 08:45 | NUR ---
PT ARRIVED TO THE FLOOR AT THIS TIME VIA BED. PT STATES THAT PAIN IS 5/10 AND IS THIS IS TOLERABLE. LUIS HOSE IN PLACE, CRYO IN PLACE, DRESSING INTACT, CLEAN AND NO NOTED DRAINAGE. PT HAS KERR IN PLACE, THIS RN SENT A UA TO LAB. PT STATES THAT HE NEEDS NOTHING ELSE AT THIS TIME
--- NOTE | 2021-04-28 08:54 | NUR ---
04/28/21 0854 Sharon Mccormack 0754 PT ARRIVED IN PACU SLEEPY WITH NO C/O'S. CRYO CUFF PLACED ON R HIP. 0821 TORADOL 15MG GIVEN IVP PER DR ORDERS. NO C/O'S. 0830 OXYGEN SATS 88% ON RA WITH COUGH, DEEP BREATHING. O2 AT 2L VIA NC PLACED. 0845 TO ROOM 121. REPORT GIVEN TO RN. BED PLUGGED IN.
--- NOTE | 2021-04-28 09:50 | NUR ---
THIS RN IN PTS ROOM TO DO PTS POST OPP VITALS. PT STATES PAIN IS 5/10 AND UNCHANGED, PT THEN 5MINS LATER REPORTED TO THIS RN THAT HE WAS HAVING SHOOTING PAIN IN RIGHT HIP BUT THEN DISAPPEARED. THIS RN EDUCATED PT ABOUT HOW THE SPINAL ANESTHIA WORK. THIS RN REMOVED PTS OXYGEN DUE TO PT SATING GREATER THAN 90% ON ROOM AIR.
--- NOTE | 2021-04-28 10:30 | NUR ---
THIS PT BACK IN PTS ROOM TO GIVE PT 0.5MG OF DILUADID TO HELP EASE PTS PAIN OF 9/10. PT REPORTS CRAMPING AT THE RIGHT HIP INSCION SITE. SITE UNCHANGED. PT DID DESAT TO 88% ON ROOM AIR. THIS RN PLACED PT BACK ON 2L NC FOR SUPPORT
--- NOTE | 2021-04-28 10:59 | NUR ---
THIS RN IN PTS ROOM TO CHECK ON PT FOR POST OPP. PT STATES THAT THE PAIN MED (DILUADID) REALLY "SETTLED ME DOWN", PT REPORTS THAT HIS PAIN IS MUCH IMPROVED AND IS READY FOR A NAP. DRESSING UNCHANGED SINCE LAST CHECK. PT ONLY WANTING TO SIP COFFEE AT THIS TIME
--- NOTE | 2021-04-28 12:02 | NUR ---
THIS RN IN PTS ROOM TO DO POST OPP VITALS. PT APPEARS TO BE RESTING AT THIS TIME WITH DEEP AND EVEN BREATHS NOTED, OXYGEN IN PLACE 1L.
--- NOTE | 2021-04-28 13:07 | NUR ---
Chart faxed to [facility], face sheet, ER note, surgery note.
--- NOTE | 2021-04-28 13:28 | NUR ---
PT SITTING UP IN BED EATING LUNCH. DENIES PAIN OR NEEDS ATT. CALL LIGHT IN REACH. DRESSING CDI, CRYO, SCDS AND TEDS IN PLACE.
--- NOTE | 2021-04-28 14:14 | NUR ---
PATIENT SITTING UP IN BED WATCHING TV. VITALS AND I&O'S CHARTED. HENRI CARE AND CATH CARE DONE. CRYO FILLED. CALL LIGHT IN REACH. NO FURTHER NEEDS AT THIS TIME.
--- NOTE | 2021-04-28 14:50 | NUR ---
Notified by [facility], they will accept Elan. They will not have a bed available until . Let her know I am not sure what day plans to dc, but I don't think it will be until or later.
--- NOTE | 2021-04-28 15:10 | NUR ---
THIS TALKING BOOKS LIBRARY CLERK ASSISSTED PT WITH A SHOWER. PT NOW HAS PERSONAL CLOTHES ON WITH A NEW BRIEF. PT IS IN THE RCLINER. CALL LIGHT IS WITHIN REACH. DAUGHTER IS IN ROOM. NO FURTHER NEEDS AT THIS TIME.
--- NOTE | 2021-04-28 15:30 | NUR ---
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 RATES PAIN AN 8/10 WHILE MOVING. IN ROOM. QUESTIONS REGARDING MEDICATIONS. ANSWERED. PT ASSISTED BACK TO BED BY SHEET METAL ERECTOR AND CRYO BACK IN PLACE.
--- NOTE | 2021-04-28 18:07 | NUR ---
IN ROOM TO DO VITALS. VITALS AND I&O'S CHARTED. PATIENT COMPLAINING OF SOME HIP PAIN. RN NOTIFIED. REPOSITIONED PATIENT AND HE STATED IT FELT BETTER. CALL LIGHT IN REACH. NO FURTHER NEEDS AT THIS TIME. CRYO FILLED.
--- NOTE | 2021-04-28 18:25 | NUR ---
PT CALLED FOR PAIN MEDICATION. GIVEN TRAMADOL AND REPOSITIONED. . RATES 8\10.
--- NOTE | 2021-04-28 19:58 | NUR ---
RECEIVED REPORT FROM DAY SHIFT RN. PATIENT IS RESTING IN BED. NO NEEDS NOTED. CALL LIGHT IN REACH.
--- NOTE | 2021-04-28 21:16 | NUR ---
PATIENT ASSESMENT COMPLETED. VITALS TAKEN AND RECORDED. INTAKE AND OUPUT RECORDED. KERR EMPTIED AND KERR CARE COMPLETED. PATIENT REPORTS 3/10 PAIN SCHEDULED PAIN MEDICATION GIVEN PER ORDER. SCHEDULED MEDICATIONS GIVEN PER ORDER. IV INFUEING PER ORDER. PATIENT HAS SCDS, HEEL PROTECTORS AND TEDHOSE IN PLACE. CRYO REFILLED WITH ICE AND APPLIED TO RIGHT HIP. PATIENT REPOSITIONED IN BED. PATIENT DENIES ANY FURTHER NEEDS. CALL LIGHT IN REACH.
--- NOTE | 2021-04-28 21:31 | NUR ---
DR PATEL IN TO SEE PATIENT. PATIENTS SCHEDULED MEDICATION GIVEN PER ORDER. PATIENT DENIES ANY PAIN. PATIENT DENIES ANY NEEDS. CALL LIGHT IN REACH.
--- NOTE | 2021-04-28 23:46 | NUR ---
PATIENT IS IN BED RESTING WITH EYES CLOSED, OXYGEN SATURATION IS AT 88%. PATIENT PLACED ON 1L VIA NC. PATIENT WOKE BRIEFLY AND DENIES APIN. NO NEEDS NOTED. CALL LIGHT IN REACH.
--- NOTE | 2021-04-29 02:07 | NUR ---
PATIENT REPOSITIONED IN BED. VITALS TAKEN AND RECORDED. KERR EMPTIED. INTKAE AND OUPUT RECORDED. PATIENT REPORTS 5/10 PAIN IN HIS RIGHT HIP. SCHEDULED PAIN MEDICATION GIVEN PER ORDER. PATIENTS CRYO REFILLED WITH ICE AND APPLIED TO RIGHT HIP. PATIENT HAS SCDS, CRYO, AND TEDHOSE IN USE. PATIENT REMAINS ON 1L VIA NC. CPOX IN USE. IV INFUSING PER ORDER. PATIENT DENIES ANY NEEDS. CALL LIGHT IN REACH.
--- NOTE | 2021-04-29 03:36 | NUR ---
PATIENT IS RESTING IN BED WITH EYES CLOSED, CPOX READINGS ARE WNL. CALL LIGHT IN REACH.
--- NOTE | 2021-04-29 06:23 | NUR ---
PATIENT REPOSITIONED IN BED. PATIENTS SCHEDULED MEDICATIONS GIVEN PER ORDER. PATIENT DENIES ANY PAIN. PATIENT DENIES ANY NEEDS. CALL LIGHT IN REACH.
--- NOTE | 2021-04-29 07:30 | NUR ---
RECEIVED REPORT AT 0700. PT AWAKE IN BED. KERR STILL PRESENT DUE TO LOW URINE OUTPUT.
--- NOTE | 2021-04-29 08:45 | NUR ---
PAIN IS WELL CONTROLLED WITH PRN PAIN MEDS AVAILABLE. RIGHT PEDIS PULSES +2, MINIMAL THIGH/HIP EDEMA PRESENT, DRESSING IS C/D/I. URINE OUTPUT HAS NOT BEEN ADEQAUTE ALL NIGHT AND STILL IS NOT ADQUATE THIS MORNING SO FAR. PO INTAKE WAS ENCOURAGED. LOBES ARE CLEAR PT ON ROOM AIR WITH O2 SATS ONLY AT 91%. INSENTIVE SPIROM. WAS GIVEN TO PT. PHYS. THERAPY TO SEE PT SOON.
--- NOTE | 2021-04-29 09:53 | OR ---
[facility] [address] [place], [place] [address] Signed DATE OF OPERATION: 04/28/2021 SURGEON: Ildefonso Tate MD PREOPERATIVE DIAGNOSIS: Right intertrochanteric hip fracture. POSTOPERATIVE DIAGNOSIS: Right intertrochanteric hip fracture. PROCEDURE PERFORMED: Open reduction and internal fixation of right hip. SCIENTIFIC ASSOCIATE: Kaylah Altamirano PA-C. Kaylah was present and critical for all portions of procedure. ANESTHESIA: Spinal. BLOOD LOSS: 100 mL. IMPLANTS: Four-hole DHS with a 95 mm lag screw and four 4.5 mm screws. BRIEF HISTORY: Elan is a 76-year-old gentleman, who was attempting to get water for his dog when he bent over and lost his balance, fell landing on his right hip. He was unable to bear weight, he was taken to the ER. Radiographs showed a minimally displaced intertrochanteric hip fracture. He was admitted to my service last night. Risks and benefits of operative treatment were discussed with him and he elected to proceed. DESCRIPTION OF PROCEDURE: Once consent was obtained, he was taken to the operating room. After adequate anesthesia, he was placed on the fracture table. The left leg was placed in a foot traction, but no traction was applied. This leg was then extended and slightly abducted. The operative leg was placed in a foot traction device and the leg was internally rotated and slight traction was placed to reduce the fracture. It was also slightly adducted. Once this was done, the hip was prepped and draped in a standard Electronically Signed By: ILDEFONSO TATE MD 04/29/21 0953 PATIENT NAME: ELAN REZA OPERATIVE REPORT DATE OF : 43 REPORT #: [id number] PHYSICIAN: ILDEFONSO TATE MD PCP: [facility] REPORT IS CONFIDENTIAL AND NOT TO BE RELEASED WITHOUT AUTHORIZATION [facility] [address], [place] [address] Signed sterile fashion. Using a guide pin, we located the position for the incision. Incision was made through skin and subcutaneous tissue. The IT band was divided longitudinally in a sharp manner. Blunt dissection was undertaken through the vastus lateralis, splitting it longitudinally and elevating it off the lateral femur. A large bone hook was then used to reduce the medial portion of the calcar. The guide pin for the DHS was then placed through the guide on the lateral femur and aligned with the femoral neck. The guide pin was advanced into the center-center position in the femoral head. It was advanced until it was well positioned and then measured to a 95. The triple reamer was then placed over this and reamed until it was well-seated. The 4-hole DHS was then placed over the guide pin and advanced until it was flushed with the lateral femur. It was then centered in the sagittal plane. Four screws were then placed through the plate in a bicortical manner. The bone hook was removed. Fracture stability was excellent and the reduction was good. Final radiographs showed good reduction and good placement of all hardware. The wound was copiously irrigated with antibiotic solution. The IT band was closed with a 2-0 Stratafix, subcutaneous tissue with #0 Stratafix, and the skin with jaci. Acticoat dressing was placed. He was awakened, taken to the recovery room in satisfactory condition. All sponge, needle, and instrument counts were correct. Ildefonso Tate MD BA/FRANK /[id number] Copies: ~ Electronically Signed By: ILDEFONSO TATE MD 04/29/21 0953 PATIENT NAME: ELAN REZA OPERATIVE REPORT DATE OF : 43 REPORT #: [id number] PHYSICIAN: ILDEFONSO TATE MD PCP: [facility] REPORT IS CONFIDENTIAL AND NOT TO BE RELEASED WITHOUT AUTHORIZATION
--- NOTE | 2021-04-29 09:54 | NUR ---
Vitals were completed already within the last hour. I&Os are complete. Patient just talked with doctor. Call light is in reach and patient via chair with PT w/ 2PA, FWW.
--- NOTE | 2021-04-29 10:00 | NUR ---
PT IN ROOM. NO NEW CONCERNS NOTED.
--- NOTE | 2021-04-29 10:15 | NUR ---
In and spoke with pts . She has questions regarding [facility] and all questions answered. Gave her the [facility] brochure and informed he has not yet be accepted, but it looks good. Dr. Tate and Dr. Cristobal discussing treatment for low Iron. I will call her when I know for sure the day pt will be admitted and transported. Marita would like me to call her on her cell phone.
--- NOTE | 2021-04-29 12:00 | NUR ---
URINE OUTPUT STILL NOT ADEQUATE SO FAR. NO NEW CONCERNS NOTED AT THIS TIME.
--- NOTE | 2021-04-29 13:13 | NUR ---
PATIENT'S HAIR SHAMPOO DONE.
--- NOTE | 2021-04-29 13:23 | NUR ---
PAIN 0/10. RIGHT PEDIS PULSE +20, DRESSING STILL C/D/I. O2 SATS WDL NOW AND PULSE OX HAS BEEN TURNED OFF.
--- NOTE | 2021-04-29 13:54 | NUR ---
PATIENT WORKING WITH PT, 2 PERSON ASSIST BACK TO BED. 1400 PAIN MEDICATIONS GIVEN FOR 5/10 PAIN.
--- NOTE | 2021-04-29 14:24 | NUR ---
Notified by Anabell at [facility]. They have covid out break and are unable to accept pt. Will fax chart to [facility]. Called and left a message with Patricia asking if she could take this pt. Called and left a message on 's cell phone. Dr. Cristobal updated.
--- NOTE | 2021-04-29 16:00 | NUR ---
Vitals, I&Os are done. Call light is in reach. Patient was encouraged to drink more water.
--- NOTE | 2021-04-29 16:59 | NUR ---
Vitals, I&Os are complete. Patient is going sleep for a little while. Call light in reach.
--- NOTE | 2021-04-29 17:30 | NUR ---
URINE OUTPUT HAS REMAIND LOW ALL DAY. PO INTAKE HAS BEEN ENCOURAGED AND PT DID INCREASE HIS PO INTAKE SOME. OVERALL PT HAS DENIED RIGHT HIP PAIN FOR MOST OF THE DAY. DRESSING IS C/D/I. PT NOW SL DUE TO FLUID OVERALAD COCNERNS. KERR STILL IN PLACE. TRACE RIGHT HIP EDEMA PRESENT.
--- NOTE | 2021-04-29 18:32 | NUR ---
MD RICHEY WAS CALLED AND UPDATED ON PT.
--- NOTE | 2021-04-29 20:02 | NUR ---
RECEIVED REPORT CELI DAY SHIFT RN. PATIENT IS RESTING IN BED WITH EYES CLOSED, RR 16. CALL LIGHT IN REACH.
--- NOTE | 2021-04-29 20:15 | NUR ---
IN TO ASSIST RN WITH VITALS, KERR EMPTIED AT THIS TIME, CRYO ICE REFILLED, ICE WATER REFILLED NO FURTHER NEEDS AT THIS TIME
--- NOTE | 2021-04-29 20:24 | NUR ---
PATIENT ASSESMENT COMPLETED. VITALS TAKEN AND RECORDED. SCHEDULED MEDICATIONS GIVEN PER ORDER. PATIENT DENIES ANY PAIN. PATIENT REPOSITIONED IN BED. PATIENTS SCHEDULED MEDICATIONS GIVEN PER ORDER. PATIENTS CRYO REFILLED WITH ICE AND APPLIED TO RIGHT HIP. ACTECOTE DRESSING PERSENT ON RIGHT HIP, AND IS C/D/I, NO DRIANAGE NOTED. PATIENT HAS SCDS, HEEL PROTECTORS, AND TEDHOSE IN USE. PATIENTS ICE ATER REFILLED. PATIENT IS DROWSY, BUT AAOX4. PATIENT DENIES ANY NEEDS. CALL LIGHT IN REACH.
--- NOTE | 2021-04-29 22:30 | NUR ---
SCHEDULED MEDICATIONS GIVEN PER ORDER. PATIENT DENIES ANY PAIN. PATIENTS CRYO HAS SUFFICIENT ICE. PATIENT DENIES ANY NEEDS. CALL LIGHT IN REACH.
--- NOTE | 2021-04-30 00:30 | NUR ---
PATIENT IS RESTING IN BED WITH EYES CLOSED, RR 16. CALL LIGHT IN REACH.
--- NOTE | 2021-04-30 03:09 | NUR ---
PATIENTS SCHEDULED MEDICATIONS GIVEN PER ORDER. PATIENT PROVIDED WITH FRESH ICE WATER AND APPLE JUICE. PATIENT REPOSITIONED IN BED. PATIENTS CRYO REFILLED AND PLACED ON PATIENTS RIGHT HIP. PATIENT DENIES ANY PAIN. PATIENT HAS SCDS, TEDHOSE, AND HEEL PROTECTORS IN PLACE. PATIENT DENIES ANY FURTHER NEEDS. CALL LIGHT IN REACH.
--- NOTE | 2021-04-30 06:04 | NUR ---
PATIENTS KERR EMPTIED AND KERR CARE COMPLETED. VITALS TAKEN AND RECORDED. INTAKE AND OUPUT RECORDED. SCHEDULED MEDICATION GIVEN PER ORDER. PATIENT REPOSITIONED IN BED. PATIENTS CRYO REFILLED WITH ICE AND APPLIED TO RIGHT HIP. PATIENTS DRESSING ON RIGHT HIP IS C/D/I. SCDS, TEDHOSE, AND HELL PROTECTORS IN PLACE. PATIENT DENIES ANY PAIN. NO FURTHER NEEDS NOTED. CALL LIGHT IN REACH.
--- NOTE | 2021-04-30 07:21 | NUR ---
REPORT RECEIVED FROM DAMON ANGELO. PT RESTING IN BED WITH EYES CLOSED. RESPIRATIONS EVEN AND UNALBORED. CRYO CUFF AND SCD'S IN PLACE. HEAD OF BED ELEVATED TO 35 DEGREES. PT ALLOWED TO REST. CALL LIGHT WITHIN REACH. BED RAILS UP.
[2021-04-30] MEDS ORDERED: HYDROCODON-ACE1 EA11 PO (07:50)
--- NOTE | 2021-04-30 08:01 | NUR ---
Patient sitting up in bed and eating breakfast. Warm wash cloth offered but refused. Checked [employer]. White board updated, and call light within reach. No further needs at this time.
--- NOTE | 2021-04-30 09:21 | NUR ---
MORNING ASSESSMENT AND MEDICATION DUE. PT RESTING IN BED, FINISHED WITH BREAKFAST. PT DENIES PAIN AND NAUSEA, ABLE TO EST ~25% OF BREAKFAST. PT ORIENTED TO ALL BUT FORGETFUL AT TIMES. BLE REMAIN WEAK. STRONG PLANTAR AND DORSI FLEXION NOTED. PT ABLE TO LIFT LEGS OFF THE BED, LEFT LEG STRONGER THAN RIGHT WHEN LIFTING LEGS OF THE BED. CMS INTACT. FINE CRACKELS NOTED IN LOWER LOBES OF LUNGS. PT DEMONSTRATES USE OF I.S. REACHING 1250-1500ML X5. URINE OUTPUT REMAINS LOW BUT QUANTITY SUFFICIENT AT THIS TIME. VITAL SIGNS STABLE. DRESSING TO RIGHT THIGH C/D/I, NO DRAINGE NOTED. MILD EDEMA IN RIGHT UPPER LEG. CRYO CUFF, SCD'S AND LUIS HOSE IN PLACE. PT DENIES ADDITIONAL REQUESTS OR COMPLAINTS. CALL LIGHT WIHTIN REACH. FAMILY AT BEDSIDE.
[2021-04-30] MEDS ORDERED: ADULT ASPIRIN R81 MG PO (09:57)
--- NOTE | 2021-04-30 10:19 | NUR ---
SALVAGE MACHINE OPERATOR REPORTS TO THIS RN THAT PT WOULD LIKE TO GET BACK TO BED. PT RECENTLY UP WITH PHYSICAL THERAPIST AND NOW UP TO CHAIR. THIS RN TO ROOM TO CHECK ON PT. PT DENIES PAIN AND NAUSEA. EDUCATION DONE WITH PT REGARDING STAYING UP TO CHAIR, PT VERBALIZES UNDERSTANDING AND STATES HE WILL REMAIN UP TO CHAIR. PT OFFERED PAIN MEDICATION, CONTINUES TO DENY PAIN AND DECLINES PAIN MEDIATION. PT REQUESTS A FLU SHOT. ORDER PLACED. PT UPDATED ON PLAN OF CARE AND PLAN FOR DISCHARGE TO REHAB FACILITY. CRYO CUFF REMAINS IN PLACE. NO ADDITIONAL REQUESTS OR COMPLAINTS. CALL LIGHT IN PTS HAND. FAMILY AT BEDSIDE.
--- NOTE | 2021-04-30 11:09 | NUR ---
MED REC COMPLETE
--- NOTE | 2021-04-30 11:51 | NUR ---
THIS RN TO ROOM TO CHECK ON PT. PT REMAINS UP TO CHAIR. PT CONTINUES TO DENY PAIN AND NAUSEA. PT EATING LUNCH. PT UPDATED ON PLAN FOR DISCHRAGE. IV DC'D PER PROTOCOL, JANICE APPLIED. AWAITING PTS NEICE TO ARRIVE WITH PTS CLOTHES. NO ADDITIONAL REQUESTS OR COMPLAINTS. CALL LIGHT WITHIN REACH.
--- NOTE | 2021-04-30 12:55 | NUR ---
LAST SET OF PT VITALS DONE. PT DRESSED IN PERSONAL CLOTHES AND USES FWW TO STAND AND PIVOT TO WHEEL CHAIR. ICE PACKS PLACED ON RIGHT HIP FOR THE DRIVE AND FRESH ICE WATER GIVEN. PT'S NIECE PLANS TO MEET AT FACILITY.
--- NOTE | 2021-04-30 13:06 | NUR ---
REPORT CALLED TO DAMON MONTIEL AT [facility]. PT HAS ALREADY BEEN TAKEN OUT TO MEET WHEELCHAIR VAN BY EDUCATION ADMINISTRATIVE ASSISTANT'S. KERR CATHETER WAS NOT DC'D AND FLORAL ASSOCIATE STATES MENTIONED TAKING IT OUT. NO ORDER PRESENT. DAMON MONTIEL AT FACILITY, STATES SHE WILL CONFIRM ORDER TO HAVE CATHETER REMOVED AND TAKEN OUT WHEN PT ARRIVES TO FACILITY.
== END 2021-04-30 12:50 | disposition home or self-care (01) | DRG 482 ==
LOC: ED 16:32 → MS 20:28
PROVIDERS: ADMIT Specialist; ATTEND Specialist
PROC: 0QS604Z Reposition Right Upper Femur with Internal Fixation Device, Open Approach (ICD-10-PCS; principal; 2021-04-28 07:30)
DX: S72.141A Displaced intertrochanteric fracture of right femur, initial encounter for closed fracture (principal); W18.30XA Fall on same level, unspecified, initial encounter; I25.10 Atherosclerotic heart disease of native coronary artery without angina pectoris; I10 Essential (primary) hypertension; D50.9 Iron deficiency anemia, unspecified; K21.9 Gastro-esophageal reflux disease without esophagitis; E78.5 Hyperlipidemia, unspecified; I25.2 Old myocardial infarction; Z95.5 Presence of coronary angioplasty implant and graft; Z86.73 Personal history of transient ischemic attack (TIA), and cerebral infarction without residual deficits; Z87.891 Personal history of nicotine dependence; Z88.0 Allergy status to penicillin
CPT/HCPCS: 01210; 51702; 73502; 80048; 80053; 80500; 81001; 85025; 85610; 90694; 93005; 93010; 97110; 97116; 97162; 97530; 99285-25; C1713; C9803; J0690; J1170; J1885; J2001; J2250; J2405; J2704; J2795; J3301; J7121; Q0138; U0003

== ENCOUNTER 2022-07-12 09:36 | Inpatient (IN) | payer MEDICARE, OTHER ==
[~2022-07-12] VITALS: Ht 165.1 cm; Wt 67.0 kg
[~2022-07-12 09:36] MED LIST changes: +ADULT ASPIRIN R81 MG PO; +HYDROCODON-ACE1 EA11 PO
[2022-07-12] MEDS ORDERED: CARBIDOPA-LEVO1 EAC1 PO (10:04)
--- NOTE | 2022-07-12 14:59 | NUR ---
PT ORIENTED TO ROOM AND BED CONTROLS. FRESH H20, TV CONTROL, AND TV GUIDE PROVIDED. PT DENIES NEED OF ANYTHING ELSE VERBALIZES UNDERSTANDING OF NEED TO CALL STAFF FOR UP OUT OF BED OR ANY NEEDS OF.
--- NOTE | 2022-07-12 16:39 | NUR ---
PT RESTING EYES CLOSED AWAKENS TO VOICE. DENIES NEED TO TOILET. SATS 97% ON 2 L02 DECRASED TO 1 LPM.
[2022-07-12] MEDS ORDERED: COLACE100 MG PO (16:40)
[2022-07-12] MEDS ORDERED: FLOMAX0.4 MG PO (16:41)
--- NOTE | 2022-07-12 18:30 | NUR ---
PT 02 SATS 96% ON 1 L02. UNDERGARMENT CHANGED PT REPOSITIONED. DENIES FURTHER NEEDS OF
--- NOTE | 2022-07-12 18:33 | NUR ---
PT INCONT OF URINE. SAT PT AT EDGE OF BED W/ASSISTANCE FROM VICTORINO CRESPO. PT WAS UNABLE TO MOVED LEGS TO EDGE OF BED W/P ASSITANCE. WHEN SITTING UP I HAD TO HOLD HIS L SIDE UP HE HAD NO STRENGHT TO HOLD HIMSELF UP. PT WAS UNABLE TO STAND. LAID HIM BACK IN BED, PERFORMED HENRI CARE , CHANGED BRIEF, NEW GOWN. VITALS/IO'S DOCUMETNED. CALL LIGHT IN REACH.
--- NOTE | 2022-07-12 19:05 | NUR ---
REPORT RECEIVED FROM DMAON FELDMAN. PT RESTING IN BED WITH EYES CLOSED. RR EVEN AND UNLABORED. NO NEEDS IDENTIFIED AT THIS TIME. CALL LIGHT IN REACH.
--- NOTE | 2022-07-12 20:00 | NUR ---
IN TO ASSIST DAMON ESTEBAN WITH ATTENDS. PT RESTING IN BED WITH EYES CLOSED. PT AWAKENS AND RESPONDS WHEN ADDRESSED. UPON TURNING PT FOR HENRI CARE SKIN TEAR NOTED TO PTs LEFT BUTTOCK AND LEFT SHOULDER. COSENT FOR PICTURES OF SKIN TEARS OBTAINED. PICTURES TAKEN. NEW ATTENDS IN PLACE. COOL WASH CLOTH TO CLEAN PTs LIPS. PT DENIES ANY OTHER NEEDS AT THIS TIME. CALL LIGHT IN REACH.
--- NOTE | 2022-07-12 21:10 | NUR ---
IN TO ADMINISTER MEDICATION. PT RESTING IN BED WITH EYES CLOSED. RR EVEN AND UNLABORED. PT AWAKENS WHEN ADDRESSED. PT IS ON 1L NC WITH O2 SATS AT 93%. PT TAKES PO MEDICATION WITH NO ISSUES. VITALS COMPLETE. ASSESSMENT COMPLETE. PT DENIES ANY PAIN AT THIS TIME. LUNG SOUNDS DIMINISHED IN TYRESE, CRACKLES IN RLL AND LLL. BOWEL TONES ACTIVE. PT A&O TO SELF, AND PLACE. PT NO A&O TO DATE. WHEN ASKED IF PT KNOWS WHY HE IS HERE PT STATES "FLU," WHEN PT ASKED WHAT YEAR IT IS PT STATES "2021," WHEN ASKED WHAT DATE IT IS PT STATES "I DO NOT KNOW," WHEN ASKED WHAT MONTH IT IS PT STATES "JUNE." VITALS COMPLETE. PT DENIES ANY OTHER NEEDS AT THIS TIME. CALL LIGHT IN REACH. PT VERBALIZED UNDERSTANDING TO USE CALL LIGHT IF PT NEEDS ANYTHING.
--- NOTE | 2022-07-13 02:39 | NUR ---
PT IN BED RESTING. VITALS AND IS AND OS COMPLETE. BRIEF CHECKED. BRIEF SOILED. BRIEF CHANGED BY OCCUPATIONAL HEALTH NURSE SUPERVISOR. NO FURTHER NEEDS. CALL LIGHT WITHIN REACH.
--- NOTE | 2022-07-13 05:02 | NUR ---
ASSESSMENT COMPLETE. LUNG SOUNDS CRACKLES IN RLL AND LLL. EXPIRATORY WHEEZE IN RUL. DIMINISHED IN TYRESE. PT REPORTS NO PAIN AT THIS TIME. PT TITRATED OFF NC. O2 SATS AT 91% ON RA. PT REQUESTING BLANKETS TO BE PLACED OVER HIM, BLANKETS PLACED OVER PT. PT REPORTS NO OTHER NEEDS AT THIS TIME. CALL LIGHT IN REACH.
--- NOTE | 2022-07-13 05:56 | NUR ---
IN ROOM TO ROUND ON PT. PT REQUESTING TO USE COMMODE. 2PA WITH VICTORINO WATTS FROM BED TO COMMODE AND THEN TO CHAIR. BM NOTED. VITALS COMPLETE. IS EDUCATION. PT DEMONSTRATED HOW TO USE IS AND WAS ABLE TO GET TO 1,000ML X1 AND 750ML X3. PT REPORTS NO OTHER NEEDS AT THIS TIME. CALL LIGHT IN REACH. CHAIR ALARM ON.
--- NOTE | 2022-07-13 05:56 | NUR ---
RN RQ HELP TO ASSIST PT TO BSC. PT ASSISTED TO BSC 2 PA. AFTER PT CLEANED BY SHAREPOINT SPECIALIST, PT ASSISTED TO CHAIR 2 PA. CHAIR ALARM SET. VITALS AND IS AND OS COMPLETE. LINEN CHANGE COMPLETE. NO FURTHER NEEDS. CALL LIGHT WITHIN REACH
--- NOTE | 2022-07-13 06:30 | NUR ---
IN TO ANSWER CALL LIGHT WITH VICTORINO WATTS. PT REQUESTING TO USE COMMODE. 2PA FROM CHAIR TO COMMODE AND BACK TO CHAIR. BM NOTED. PT REPORTS NO OTHER NEEDS AT THIS TIME. CALL LIGHT IN REACH. CHAIR ALARM ON.
--- NOTE | 2022-07-13 07:38 | NUR ---
PT DOZING IN RECLINER AT TIME OF SHIFT REPORT. AWAKENS TO VOICE AGREES HE IS COMFORTABLE. CALL LIGHT IN LAP.
--- NOTE | 2022-07-13 08:36 | NUR ---
MED REC COMPLETE
--- NOTE | 2022-07-13 09:15 | NUR ---
PT IN CHAIR. VITALS AND IS AND OS COMPLETE. PT BRIEF CHECKED AND WAS SOILED. I REQ ANOTHER CNAS HELP. OTHER ASSEMBLY STOCK SUPERVISOR IN ROOM TO HELP STAND PT UP AND CHANGE BRIEF. PT BACK IN CHAIR. NO FURTHER NEEDS. CALL LIGHT WITHIN REACH.
--- NOTE | 2022-07-13 09:38 | NUR ---
STAFF REPORT HR 120's CHECKED IN ON PT HIS HR IS 94 AND IRREGULAR. RESTING IN CHAIR DENIES ANY DISCOMFORTS
--- NOTE | 2022-07-13 09:51 | NUR ---
PT CONTINUES IN THE CHAIR AFTER MORNING MEAL, DOZES OFF AND ON AWAKENS TO VOICE. PT AGREES HE IS COMFORTABLE. SATS REMAIN MID 90'S ON RA, NONPRODUCTIVE COUGH CONTINUES. PT USES CALL LIGHT APPROPRIATELY FOR TOILETING.
--- NOTE | 2022-07-13 09:54 | NUR ---
PT CALL LIGHT ANSWERED. PT REQ TO USE BSC TO HAVE BM. 2 CNAS IN ROOM TO STAND PIVOT TO BSC FROM CHAIR. PT CLEANED AND PIVOTED BACK TO CHAIR. NO FURTHER NEEDS. CALL LIGHT WITHIN REACH
--- NOTE | 2022-07-13 12:40 | NUR ---
PT RESTING UPRIGHT IN BED JUST FINISHED NOON MEAL, WELL TOLERATED. NOTE SENT TO DR MAGANA R/T HOME MED FOR [facility] NOT BEING GIVEN. NO ANSWER YET. PT DENIES SOB OR OTHER DISCOMFORTS, CONTINUES ON RA JETT JAUREGUI 'S. CALLS FOR UPDATE STATES PT NORMALLY AMBULATES USING A WALKER AT HOME. 2 PERSON PIVOT TRANSFER TO CHAIR TODAY AND THE SAME COMING BACK.
--- NOTE | 2022-07-13 13:34 | NUR ---
LYING IN BED,JUST FINISHED LUNCH.PATIENT STATES HIS DISCHARGE PLAN IS TO GO HOME WITH HIS WHEN HE IS DISCHARGED. CALLED [employer] FOR MORE INFORMATION.PATIENT USES A WALKER AND PATIENT STATES [employer] IS GOING TO BUY HIM AN ELECTRIC WHEELCHAIR.
--- NOTE | 2022-07-13 14:31 | NUR ---
PT UP TO THE CHAIR WITH P/T
--- NOTE | 2022-07-13 14:53 | NUR ---
NOTIFIED DR MAGANA OF [facility] FOR PT CARBA/LEVA TID. HE AGREES TO REVIEW HOME MEDS AND RESTART
--- NOTE | 2022-07-13 17:13 | NUR ---
pt awake self feeding evening meal. message from given to him. pt is cooperative smiles easily
--- NOTE | 2022-07-13 17:57 | NUR ---
PATIENT SITTING UP IN BED AT THIS TIME. VITALS AND I&O'S CHARTED. PATIENT HAD HIGH TEMP., RN NOTIFIED. PATIENT GIVEN IS TO USE. CALL LIGHT IN REACH. NO FURTHER NEEDS AT THIS TIME.
--- NOTE | 2022-07-13 17:58 | NUR ---
PATIENT GIVEN 650MG OF PO TYLENOL FOR TEMP OF 102.1
--- NOTE | 2022-07-13 19:00 | NUR ---
REPORT RECEIVED FROM DAMON FELDMAN. PT RESTING IN BED WITH EYES CLOSED. RR EVEN AND UNLABORED. NO NEEDS IDENTIFIED AT THIS TIME. CALL LIGHT IN REACH.
--- NOTE | 2022-07-13 21:24 | NUR ---
ASSESSMENT COMPLETE. LUNG SOUNDS CLEAR IN RUL. RLL CRACKLES. LLL CREACLES. TYRESE DIMINISHED. HEART RATE IRREGULAR WITH PULSE AROUND 121. MD AWARE, NEW ORDERS PLACED MY MD SEE OCT. PT ON 2L NC WITH O2 SATS AT 94%. BOWEL TONES ACTIVE. PT DENIES ANY PAIN AT THIS TIME. CALL LIGHT IN REACH. PT DENIES ANY OTHER NEEDS AT THIS TIME.
--- NOTE | 2022-07-13 22:09 | NUR ---
MD TO FLOOR, NOTIFIED OF pt VS. MD TO REVIEW CHART, WRITE ORDERS.
--- NOTE | 2022-07-14 00:39 | NUR ---
PT INCONTINENT OF URINE. URBANO RN IN TO ASSIST WITH HENRI CARE. IV PUMP ALARMING, BOLUS FINISHED. PT TURNED WITH PILLOW PLACED UNDER LEFT SIDE. PT REPORTS NO OTHER NEEDS AT THIS TIME. CALL LIGHT IN REACH.
--- NOTE | 2022-07-14 05:48 | NUR ---
[employer] DOWN TIME FROM 0100 TO 0545. SEE PAPER CHARTS.
--- NOTE | 2022-07-14 06:01 | NUR ---
ASSESSMENT COMPLETE. LUNG SOUNDS CLEAR IN RUL. CRACKLES IN RLL AND TYRESE. CRACKLES AND DIMINISHED IN LLL. O2 SATS AT 96% ON 2LNC. HEART RHYTHM TACHYCARDIA. BOWEL TONES ACTIVE. PT INCONTINENT OF URINE. VICTORINO ARNOLD IN ROOM TO ASSIST WITH HENRI CARE. NEW DRAW SHEET AND MIRIAM PAD PLACED WHILE PERFORMING HENRI CARE. PT REPORTS NO OTHER NEEDS AT THIS TIME. CALL LIGHT IN REACH. BED ALARM ON.
--- NOTE | 2022-07-14 07:15 | NUR ---
recieved shift report. pt resting in bed, eyes closed. breathing even and unlabored. call light within reach
--- NOTE | 2022-07-14 09:45 | NUR ---
MORNING ASSESSMENT COMPLETE. PT SITTING IN RECLINER, AWAKE. BALLET PROFESSOR REPORTED 1PA, FWW WITOUT DIFFICULTY. 1.5L NC IN PLACE, SPO2 96%. BREATHING EVEN AND UNLABORED. TACHYPNEIC, RR 24. LEFT UPPER LOBE CLEAR, CRACKLES HEARD IN RIGHT UPPER AND BILAT LOWER LOBES. NON-PRODUCTIVE LOOSE COUGH. DENIES PAIN AT THIS TIME. CALL LIGHT WITHIN REACH.
--- NOTE | 2022-07-14 11:20 | NUR ---
PATIENT UP TO BSC FROM CHAIR, 1PA FWW. PATIENT HAD BM. HENRI CARE DONE. NEW ATTENDS IN PLACE. PATIENT THEN BACK TO CHAIR, 1PA FWW. CALL LIGHT IN REACH. NO FURTHER NEEDS AT THIS TIME.
--- NOTE | 2022-07-14 11:46 | NUR ---
SITTING IN BED AND WATCHING TV. PATIENT STATES HE FEELS BETTER TODAY. PATIENT PLANS TO GO HOME ON DISCHARGE.PATIENT STATES HIS IS SICK.PATIENT STATES HE HAS LOTS OF FAMILY THAT CAN HELP WITH CARE ON DISCHARGE. NO CHANGE IN DC PLAN AT THIS TIME.
--- NOTE | 2022-07-14 15:42 | NUR ---
AFTERNOON ASSESSMENT COMPLETE. LUNG SOUNDS CLEAR IN RUL. CRACKLES HEARD TYRESE AND BILAT LOWER. PRODUCTIVE, MOIST COUGH. SPO2 97% ON 1.5L NC. DENIES PAIN AND ANY FURTHER NEEDS. CALL LIGHT WITHIN REACH.
--- NOTE | 2022-07-14 19:20 | NUR ---
REPORT RECEIVED FROM DAMON ARRINGTON AND FRANKLIN RN. PT RESTING IN BED. PT RESPONDS WHEN ADDRESSED. RR EVEN AND UNLABORED. PT ON 2L NC. PT REPORTS NO NEEDS AT THIS TIME. CALL LIGHT IN REACH.
--- NOTE | 2022-07-14 21:10 | NUR ---
IN TO ADMINISTER MEDICATIONS. PT TAKES PO MEDICATIONS. ASSESSMENT COMPLETE. LUNG SOUNDS CRACKLES IN TYRESE. CRACKLES AND DIMINISHED IN LLL. CRACKLES IN RLL. BOWEL TONES ACTIVE. HEART TONES IRREGULAR. NEW PAD PLACED IN ATTENS BY DAMON LLOYD. PT REPORTS NO OTHER NEEDS AT THIS TIME. CALL LIGHT IN REACH.
--- NOTE | 2022-07-15 02:21 | NUR ---
IN TO ROUND ON PT. PT AWAKE WHEN ENTERING ROOM. UPON ENTERING ROOM THIS RN NOTICED PTs IV IN LEFT WRIST WAS PULLED OUT. WHEN ASKING THE PT WHAT HAPPENED TO HIS IV PT STATES "I WAS REMOVING THE TAPE, DO YOU HAVE MORE TAPE?" THIS RN INFORMED PT THAT HE DID NOT NEED ANY MORE TAPE AT THE IV WAS OUT OF HIS ARM. ASSESSMENT COMPLETE. EXPIRATORY WHEEZE THROUGHOUT ALL LOBES OF THE LUNGS. DIMINISHED IN RLL. PT HAD REMOVED NC. SPOT CHECKED O2 SATS WITH O2 AT 93% ON RA. LEFT PT ON RA. HEART RHYTHM IRREGULAR. BOWEL TONES ACTIVE. PT A&O TO SELF, MONTH, YEAR AND PLACE. PT INCONTINENT OF URINE. VICTORINO ARNOLD IN ROOM TO ASSIST WITH HENRI CARE. ALLEVYN TO LEFT BUTTOCK REMOVED AND NEW ALLEVYN IN PLACE. PT BOOSTED BACK UP IN BED. PT REPORTS NO OTHER NEEDS AT THIS TIME. CALL LIGHT IN REACH.
--- NOTE | 2022-07-15 07:37 | NUR ---
recieved shift report. pt in recliner, awake. call light within reach.
--- NOTE | 2022-07-15 10:05 | NUR ---
MORNING ASSESSMENT COMPLETE. PT SITTING IN CHAIR. DENIES PAIN. WHEEZES HEARD BILAT UPPER LOBES, COURSE BILAT LOWER. SPO2 91% ON RA, PLACED ON 1.2L NC, SPO2 95%. PRODUCTIVE, LOOSE COUGH. PT ABLE TO COUGH UP SPUTUM. BREATHING EVEN, UNLABORED, TACHYPNEIC, RR 36. CALL LIGHT WITHIN REACH. DENIES FURTHER NEEDS.
--- NOTE | 2022-07-15 10:05 | NUR ---
VITALS/I&O'S DOCUMENTED, CHECKED PT BRIEF (DRY), CHANGED INTO NEW GOWN, REPOSITIONED IN CHAIR. WATER REFILLED. CALL LIGHT ON LAP.
--- NOTE | 2022-07-15 10:45 | NUR ---
Spoke with Elan. Discussed report from PT and he would benefit from placement to a SNF for rehab. He states he has does not in the past. Let him know [facility] and [facility] currently have beds open. He states he does not want to go to [facility] as he has been there in the past. He would prefer [facility] in [place]. Let him know I will send his chart. He asks I call his Marita and confirm with her. Called Marita at work and she is not in. Called home, and she is there as she has also been sick. She told Elan she was at work as she didn't want him to worry. She would like him to go to a SNF as she states he was not walking prior to getting the flu. She prefers [facility] also, but states she would take [facility] if [facility] doesn't have a bed. Let her know Ill send his chart. I asked if [facility] will pay the copay, if he needs more than 20 days. She confirms they will as she works for them. She asks I call Desi Dunn at [phone] and she will confirm.
--- NOTE | 2022-07-15 10:58 | NUR ---
Face sheet, vaccine note, H&P, progress note, PT/OT notes and quad covid test with +influenza A test faxed to [facility].
--- NOTE | 2022-07-15 13:54 | NUR ---
Received a call from Nicole at [facility]. She states concern pt only has 1 insurance. Let her know per the , Bryson with pay the copay if he requires more than 20 days. Let her know I have called and spoke with Desi Dunn at the [facility] and she will call her to confirm they will pay the copay. She states pts need 5 days from the time of +test before they can admit to their SNF. This would make it on Sat. She will check if they have staff to admit on Sat. and let me know. If they don't have staff, admission would be on Mon.
--- NOTE | 2022-07-15 14:47 | NUR ---
AFTERNOON ASSESSMENT COMPLETE. PT SITTING IN CHAIR. NO NEW CHANGES FROM MORNING ASSESSMENT. PT ON 1L NC, SPO2 92%. LOOSE, PRODUCTIVE COUGH AND IS ABLE TO COUGH UP SPUTUM. CALL LIGHT WITHIN REACH, DENIES FURTHER NEEDS.
--- NOTE | 2022-07-15 19:10 | NUR ---
RECEIVED REPORT FROM MURPHY JOSE. PT IS RESTING IN RECLINER WATCHING TV AT THIS TIME. CALL LIGHT WITHIN REACH.
--- NOTE | 2022-07-15 20:15 | NUR ---
IN TO GET VS, PT INCONT, NEW ATTENDS ON, 1PA PIVOT TO THE BED, ALARM SET
--- NOTE | 2022-07-15 21:45 | NUR ---
IN PT ROOM FOR AVIAN KEEPER AND ASSESSMENT. PT IS LAYING IN BED DROWSY BUT ORIENTED TO ONLY SELF AND EVENT AT THIS TIME. PT HAS INFREQUENT, NONPRODUCTIVE COUGH AND LUNGS HAVE WHEEZES THROUGHOUT W/DIMINISHED IN BASES. PT ON RA. PT REPORTS NO PAIN, NAUSEA, DIZZINESS, SOB, OR N/T AT THIS TIME. PT FAVORS LEFT SIDE AND WEAKNESS PRESENT THROUGHOUT. CALL LIGHT WITHIN REACH, NO FURTHER NEEDS AT THIS TIME.
--- NOTE | 2022-07-15 22:30 | NUR ---
PT RESTING IN BED W/EYES CLOSED. RESPIRATIONS ARE EVEN AND UNLABORED, NO SIGNS OF DISTRESS. CALL LIGHT WITHIN REACH, BED ALARM ON.
--- NOTE | 2022-07-16 01:13 | NUR ---
PT RESTING IN BED W/EYES CLOSED. RESPIRATIONS ARE EVEN AND UNLABORED, NO SIGNS OF DISTRESS. CALL LIGHT WITHIN REACH, BED ALARM ON.
--- NOTE | 2022-07-16 03:41 | NUR ---
PT RESTING IN BED W/EYES CLOSED. RESPIRATIONS ARE EVEN AND UNLABORED, NO SIGNS OF DISTRESS. CALL LIGHT WITHIN REACH, BED ALARM ON.
--- NOTE | 2022-07-16 05:10 | NUR ---
IN PT ROOM FOR ASSESSMENT AND VS. VSS. EPISODE OF INCONTINENCE, CHANGED OUT PAD, HENRI CARE PERFORMED. ALLEYVN'S STILL IN PLACE. SCANT OLD SEROSANGUINOUS SHADOWING ON REAR ALLEVYN. SKIN APPEARS C/D/I WITH NO EVIDENCE OF BREAKDOWN. PILLOW PLACED UNDER RT SIDE D/T LEANING. PT REPORTS NO PAIN, NAUSEA, SOB, N/T, OR DIZZINESS. NO ACUTE CHANGES FROM PREVIOUS ASSESSMENT. PT REQUESTED TO STAY RESTING IN BED. PT IS DROWSY AND ORIENTED ONLY TO SELF AND EVENT AT THIS TIME. PULSES CONTINUE TO BE IRREGULAR, CALL LIGHT WITHIN REACH, BED ALARM ON, NO FURTHER NEEDS AT THIS TIME.
--- NOTE | 2022-07-16 08:29 | NUR ---
PATIENT UP IN CHAIR THIS AM FOR MEAL. AM CARE COMPLETED, PATIENT HAS NO OTHER NEEDS AT THIS TIME. CALL LIGHT WITHIN REACH.
--- NOTE | 2022-07-16 09:12 | NUR ---
PATIENT SITTING UP IN CHAIR EATING, NO ACUTE DISTRESS. PATIENT HAS A FREQUENT HARSH COUGH, NON PRODUCTIVE PT REPORTS. PATIENT DENIES SHORTNESS OF BREATH, SP02 92% ON ROOM AIR. PATIENT EATING BREAKFAST INDEPENDENTLY, TOLERATING POORLY DUE TO FREQUENT COUGH. PATIENT REMAINS CLOSE TO RN STATION, FRESH WATER PROVIDED. ENCOURAGED PATIENT TO CALL IF HE HAS NEEDS.
--- NOTE | 2022-07-16 09:45 | NUR ---
PATIENT IN CHAIR AFTER MEAL. VITALS AND I/O'S COMPLETED. PT HAS NO OTHER NEEDS AT THIS TIME. CALL LIGHT WITHIN REACH.
--- NOTE | 2022-07-16 09:45 | NUR ---
PER AM MEETING NO CHANGE IN DISCHARGE PLAN AT THIS TIME. AWAITING CHART REVIEW FROM [facility].
--- NOTE | 2022-07-16 10:52 | NUR ---
VERBAL ORDER OBTAINED FROM DR. TOVAR TO PLACE ORDER FOR MUCINEX AND TESSALON PERLES PER STANDARD PHARMACY DOSE ORDER. TESSALON PERLES 100MG PO TID NEEDED FOR COUGH AND MUCINEX BID NEEDED FOR CONGESTION ORDERED WITH PHARMACY VERIFICATION.
--- NOTE | 2022-07-16 12:06 | NUR ---
PATIENT IN BED RESTING, EYES CLOSED, RESPIRATIONS EVEN AND NON LABORED. PATIENT HAS NO NOTABLE DISTRESS. BED ALARM AND CALL LIGHT WITHIN REACH.
--- NOTE | 2022-07-16 12:24 | EKG ---
[facility] [address] [place] [id number] Signed Sinus tachycardia with premature supraventricular complexes and with occasional premature ventricular complexes Inferior infarct , age undetermined Abnormal ECG When compared with ECG of 27-APR-2021 18:25, premature ventricular complexes are now present premature supraventricular complexes are now present Inferior infarct is now present Nonspecific T wave abnormality now evident in Inferior leads Confirmed by Aneesh Tovar MD () on 07/12/2022 3:17:08 PM Electronically Signed By: ANEESH TOVAR MD 07/12/22 1517 Electronically Signed By: ANEESH TOVAR MD 07/16/22 1224 PATIENT NAME: LEXY REZASHAM Electrocardiogram DATE OF : 43 PHYSICIAN: ANEESH TOVAR MD REPORT #: [id number] REPORT IS CONFIDENTIAL AND NOT TO BE RELEASED WITHOUT AUTHORIZATION
--- NOTE | 2022-07-16 13:48 | NUR ---
RECVD CALL FROM ERICK AT [facility], THEY HAVE BEEN IN TOUCH WITH MARIANN AT [facility] TO CONFIRM SECONDARY INSURANCE. ERICK STATES THEY HAVE ALSO STARTED A REFERRAL FOR HOME HEALTH SERVICES WHEN PATIENT IS DISCHARGED FROM SNF. ERICK IS REQUESTING ORDER FOR ADMISSION TO SNF AND ORDER FOR HOME HEALTH TO BE FAXED TO [facility] WHEN PATIENT IS DISCHARGED.
--- NOTE | 2022-07-16 14:43 | NUR ---
TYLENOL 650MG PO ADMIN FOR GENERALIZED PAIN. PATIENT REPORTS HIS COUGH IS A BIT IMPROVED THIS AFTERNOON. PATIENT DENIES NEEDS AT THIS TIME. FRESH WATER AT BEDSIDE.
--- NOTE | 2022-07-16 15:11 | NUR ---
PER [facility]IANN [facility] PATIENT ACCEPTED FOR ADMISSION ON 07/19/22 @ 11AM. STAFF NOTIFIED AND NOTE LEFT FOR DR. HAMILTON
--- NOTE | 2022-07-16 15:15 | NUR ---
LEFT MESSAGE FOR PATIENT MIKEY REGARDING PATIENT ACCEPTANCE TO [facility] FOR T[facility].
--- NOTE | 2022-07-16 15:22 | NUR ---
PT USED CALL LIGHT FOR ASSISTANCE UP TO THE COMMODE. THIS CNA2 ASSISTED HIM USING FWW. HE IS IN NEED OF 1-2PA HE IS WEAK IN HIS LEGS AND CANNOT STAND STRAIGHT. URINE IN BREIF, BM IN COMMODE. HENRI CARE PERFORMED BY THIS CNA2, NEW BREIF ON, NEW GOWN. TX BACK IN TO BED. ADJUSTED W/PILLOWS ON L SIDE. BEDSIDE TABLE IN REACH W/BELONGINGS, CALL LIGHT IN LAP. WATCHING TV. NO OTHER REQUESTS AT THIS TIME.
--- NOTE | 2022-07-16 16:27 | NUR ---
[facility] SCHEDULED FOR 07/19/22 BETWEEN 9-9:30 AM. STAFF UPDATED.
--- NOTE | 2022-07-16 18:22 | NUR ---
PATIENT IN BED AFTER MEAL. VITALS AND I/O'S COMPLETED. PT HAS NO OTHER NEEDS AT THIS TIME. BED ALARM SET. CALL LIGHT WITHIN REACH.
--- NOTE | 2022-07-16 18:32 | NUR ---
PATIENT RESTING IN BED, NO DISTRESS. PATIENT IS ON ROOM AIR, RESPIRATIONS EVEN AND NON LABORED. BED ALARM INTACT, PT CLOSE TO RN STATION. PERSONAL SUPPLIES AND CALL LIGHT WITHIN REACH.
--- NOTE | 2022-07-16 18:40 | NUR ---
OT ASKED FOR ASSISTANCE WITH SHOWERING PT. PT WAS TX FROM CHAIR TO SHOWER CHAIR W/2PA & FWW. PT IS WEAK ON L SIDE BUT IS ABLE TO HELP. PT WAS NOT ABLE TO ASSIST W/SHOWER CARES SO OT AND I PERFORMED ALL CARES. NEW GOWN, BREIF, SOCKS. PT BACK IN CHAIR SET UP FOR DINNER. CALL LIGHT IN REACH.
--- NOTE | 2022-07-16 19:05 | NUR ---
RECEIVED REPORT FROM GABINO JOSE. PT RESTING IN BED W/EYES CLOSED. CALL LIGHT WITHIN REACH, BED ALARM ON FOR SAFETY.
--- NOTE | 2022-07-16 21:10 | NUR ---
IN PT ROOM FOR ASSESSMENT, VS, I/O'S, AND RIVERS AND LAKES LEVERMAN. PT INCONTINENT, HENRI CARE PERFORMED, NEW DEPENDS IN PLACE. X2 ALLEYVN STILL IN PLACE ON RT BUTTOCKS AND LFT SHOULDER, C/D/I. PT REPORTS NO PAIN, NAUSEA, DIZZINESS, N/T, SOB AT THIS TIME. PILLOW PLACED UNDER LFT SIDE FOR FLOATING. PT TOLERATED RIVERS AND LAKES LEVERMAN WELL W/HOB ELEVATED D/T COUGHING. PT REMAINS ON RA W/O2 SATS >90%, LUNGS ARE DIMINISHED IN BASES W/EXPIRATORY WHEEZE IN UPPER LOBES AND FINE CRACKLES IN LLL, EDUCATED PT ABOUT DEEP BREATHING AND IS USE. CALL LIGHT WITHIN REACH, BED ALARM ON FOR SAFETY, NO FURTHER NEEDS AT THIS TIME.
--- NOTE | 2022-07-16 22:32 | NUR ---
PT RESTING IN BED W/EYES CLOSED. RESPIRATIONS ARE EVEN AND UNLABORED, NO SIGNS OF DISTRESS. CALL LIGHT WITHIN REACH.
--- NOTE | 2022-07-16 22:35 | NUR ---
RECEIVED REPORT FROM GABINO JOSE. PT RESTING IN BED W/EYES CLOSED. CALL LIGHT WITHIN REACH, BED ALARM ON FOR SAFETY.
--- NOTE | 2022-07-17 01:12 | NUR ---
PT RESTING IN BED W/EYES CLOSED. RESPIRATIONS ARE EVEN AND UNLABORED, NO SIGNS OF DISTRESS. CALL LIGHT WITHIN REACH.
--- NOTE | 2022-07-17 02:40 | NUR ---
PT RESTING IN BED W/EYES CLOSED. RESPIRATIONS ARE EVEN AND UNLABORED, NO SIGNS OF DISTRESS. CALL LIGHT WITHIN REACH.
--- NOTE | 2022-07-17 03:50 | NUR ---
IN PT ROOM FOR INCONTINENCE AND ASSESSMENT. NO ACUTE CHANGES FROM PREVIOUS ASSESSMENT. PT IS RESTING IN BED ALERT AND ORIENTED TO ALL BUT TIME. LUNGS ARE DIMINISHED THROUGHOUT AND EXPIRATORY WHEEZES THROUGHOUT, FINE CRACKLES IN LLL. PT REMAINS ON RA W/O2 SATS >90%. PRN MUCINEX AND TYLENOL GIVEN. PT HOB MUST BE ELEVATED TO 90 DEGREES D/T PT DIFFICULTY SWALLOWING. SMALL SIPS ENCOURAGED AND EDUCATED ON TUCKING CHIN, PT STATES VERBAL UNDERSTANDING. SUCTION AT BEDSIDE FOR PT COMFORT D/T MUCOUS. CALL LIGHT WITHIN REACH, NO FURTHER NEEDS AT THIS TIME.
--- NOTE | 2022-07-17 06:09 | NUR ---
IN PT ROOM FOR VS. PT STATES NO PAIN OR NAUSEA AT THIS TIME. VSS. PT IS DROWSY AND SITTING UP IN BED POST LAB DRAW.
--- NOTE | 2022-07-17 07:24 | NUR ---
REPORTS RECEIVED FROM LOR JOSE, ALL QUESTIONS ANSWERED.
--- NOTE | 2022-07-17 08:25 | NUR ---
PATIENT UP IN CHAIR FOR MEAL. AM CARE COMPLETED. PT HAS NO OTHER NEEDS AT THIS TIME. CALL LIGHT WITHIN REACH.
--- NOTE | 2022-07-17 08:26 | NUR ---
MORNING ASSESSMENT COMPLETE. PT SITTING UP IN RECLINER. O2 SAT 92% ON RA. RLL COARSE AND EXP WHEEZE HEARD, LLL CRACKLES AND EXP WHEEZE. PT PRODUCTIVE COUGH. INSTRUCTED ON IS USE. IRREGLUAR HEART SOUNDS. MORNING MEDICATIONS GIVEN WITH NO ISSUE. PT DENIES FURTHER NEEDS AT THIS TIME. CALL LIGHT IN REACH AND CHAIR ALARM ON.
--- NOTE | 2022-07-17 09:47 | NUR ---
PATIENT IN CHAIR AFTER MEAL. VITALS AND I/O'S COMPLETED. CHAIR ALARM SET. PATIENT HAS NO OTHER NEEDS AT THIS TIME. CALL LIGHT WITHIN REACH.
--- NOTE | 2022-07-17 15:14 | NUR ---
RECEIVED REPORT AT THIS TIME, PT HAS NO C/O'S AT THIS TIME.
--- NOTE | 2022-07-17 17:30 | NUR ---
PT REMAINS UP IN THE CHAIR, REPOSITIONED AND SET UP FOR DINNER. PT FEEDS SELF. CALL LIGHT INPLACE.
--- NOTE | 2022-07-17 18:44 | NUR ---
PT BACK IN BED, BED ALARM ON, CALL LIGHT WITH INREACH, PT IN VIEW OF NURSES STATION. PT APPEARS TO BE SLEEPING AND HE HAS THE SUCTION IN HAND.
--- NOTE | 2022-07-17 19:10 | NUR ---
RECEIVED REPORT FROM JULIO JOSE. PT RESTING IN BED. CALL LIGHT WITHIN REACH.
--- NOTE | 2022-07-17 20:30 | NUR ---
IN PT ROOM FOR ASSESSMENT, VS, I/O'S. PT HAD EPISODE OF INCONTINENCE. NEW DEPENDS IN PLACE AND HENRI CARE PERFORMED. BARRIER CREAM APPLIED TO HENRI FOLDS. PT IS ALERT AND ORIENTED TO ALL BUT DATE AND TIME. LUNGS ARE DIMINISHED THROUGHOUT W/EXPIRATORY WHEEZE IN UPPER LOBES AND FINE CRACKLES IN LLL. VERIFIED W/TRI FROM TELEPHARMACY TO CRUSH TYLENOL AND SINEMET. PILLS GIVEN W/APPLESAUCE D/T ASPIRATION PRECAUTION AND DIFFICULTY SWALLOWING. VSS. BOTH HIPS FLOATED W/PILLOWS. IV PATENT AND WNL. PT REPORTS NO NAUSEA, N/T, DIZZINESS, SOB, AND PAIN / (PRN TYLENOL GIVEN, SEE EMAR). CALL LIGHT WITHIN REACH. NO FURTHER NEEDS AT THIS TIME.
--- NOTE | 2022-07-17 23:00 | NUR ---
OK'ED BY ALFONSO JAUREGUI TO SWITCH GUAIFENESIN FROM PILL TO ORAL SUSPENSION D/T PT DIFFICULTY SWALLOWING.
--- NOTE | 2022-07-18 01:08 | NUR ---
PT RESTING IN BED W/EYES CLOSED. RESPIRATIONS ARE EVEN AND UNLABORED. CALL LIGHT WITHIN REACH. PT ON RA, APPEARS COMFORTABLE.
--- NOTE | 2022-07-18 02:02 | NUR ---
PT ATTEMPTING TO TAKE SOCKS OFF IN BED BUT HAVING DIFFICULTY, ENTERED ROOM TO ASSIST PT. PT STATES HE IS HOT BLANKETS ARE ALREADY OFF, CHECKED TEMPERATURE AND READING OF 98.0F. PT IS ALERT AND ORIENTED TO ALL BUT DATE/TIME. PT SOUNDS CONGESTED AND AGREED TO PO CONGESTION SYRUP, TOLERATED WELL. NO ACUTE CHANGES FROM PREVIOUS ASSESSMENT. PT BOOSTED IN BED, REPOSITIONED, PILLOW REMOVED FROM RT HIP FLOATING. CALL LIGHT WITHIN REACH, BED ALARM ON, NO FURTHER NEEDS AT THIS TIME.
--- NOTE | 2022-07-18 04:04 | NUR ---
PT RESTING IN BED AWAKE WATCHING TV. PT REQUESTS URINAL, PROVIDED. PT URINATED 75 ML INTO URINAL AND ALSO HAD INCONTINENCE. NEW DEPENDS IN PLACE, HENRI CARE PERFORMED. PROVIDED ICE PACK FOR BACK OF PT NECK. BOOSTED IN BED. REMOVED PILLOW UNDER LFT HIP FOR REPOSITIONING. CALL LIGHT WITHIN REACH, PT STATES NO FURTHER NEEDS AT THIS TIME.
--- NOTE | 2022-07-18 07:31 | NUR ---
REPORT RECEIVED FROM DAMON HOROWITZ. PT RESTING IN BED WITH HEAD OF BED ELEVATED TO 25 DEGREES. PT DENIES PAIN AND NAUSEA. NO ADDITIONAL REQUSTS OR COMPLAINTS. CALL LIGHT WITHIN REACH. BED RAILS UP.
--- NOTE | 2022-07-18 08:49 | NUR ---
MORNING ASSESSMENT AND MEDICATION DUE. PT WORKING WITH PHYSICAL THERAPY TO GET OUT OF BED. PT REPORTS 05/17 "ARTHRITIS" PAIN IN LEFT WRIST. TYELNOL GIVEN. PT ANSWERING QUESTIONS APPROPRIATLY ALTHOUGH OCCATIONALLY SLOW TO RESPOND, NEED THINKING AND RESPONS TIME. PT OREINTED TO ALL BUT EXACT DATE, PT KNOWS MONTH AND EVENTS SURRROUDNING THE DATE. GENERALIZED WEAKNESS AND ARCHED BACK CONTINUE. PT HAS DIFFICULTY MOVING AND STARTING MOVING BUT IS ABLE TO STAND AND TAKE A FEW STEPS TO THE CHAIR. PT TAKES SIPS OF THICKENED WATER AND IS NOTED TO START COUGHING, WEAK COUGH NOTED. UPPER AIRWAY CONGESTION HEARD. MEDICAITONS GIVEN WITH APPLESAUCE AND PT HAS NO COUGHING, CHOAKING OR THOAT CLEARING WHEN SWALLOWING PILLS. MOIST UPPER LUGN SOUNDS, CORSE BASES. PT TOELARTING ROOM AIR WITH OXGYEN SATURATIOSN OF 91%. IRREGULAR HEAR TTONES CONTINUE, APICAL PULSE OF 92. ABDOMEN SOFT AND NON TENDER. BOWEL TONES ACTIVE. SKIN UNCHANGED. ALLEVYNS REMAIN IN PLACE. PT FEEDING SELF BREAKFAST. NO ADDITIONAL REQUESTS OR COMPLAINTS. CALL CELSO STORM.
--- NOTE | 2022-07-18 09:32 | NUR ---
PT SITTING IN CHAIR, VITALS AND I/O HAVE BEEN DOCIMENTED. PT HAS NO OTHER NEEDS AT THIS TIME, CALL LIGHT IS WITHIN REACH.
--- NOTE | 2022-07-18 10:26 | NUR ---
THIS RN TO ROOM TO CHECK ON PT. PT UP TO BEDSIDE COMODE WITH ONE PERSON ASSIST AND FWW. PT IMPULSIVE AND TRYS TO SIT DOWN AT INAPROPRAITE TIMES. HENRI CARE DONE. DEPENDS CHANGED. 2 PERSON ASSIST FOR HENRI CARE AND TRANSFER BACK TO CHAIR. PT REPORTS 9/10 PAIN IN LEFT WRIST AND REQEUSTS ICY-HOT. MESSAGE SENT TO . ICE PACK PROVIDED AT THIS TIME. NO ADDITIONAL REQUESTS OR COMPLAINTS. CALL LIGHT WITHIN REACH. CHAIR ALARM ON.
--- NOTE | 2022-07-18 11:20 | NUR ---
THIS RN TO ROOM TO CHECK ON PT. PT UP TO CHAIR, WATCHING TV. PT ASSISTED WITH FINDING THE TV STATION HE WANTS. PT NOTED TO BE COUGHING WHEN DRINKING THICKEND FLUIDS. GOWN WET, CHANGED. MESSAGE SENT TO MD, AWAITING ORDERS. PT REPORTS ICE PACK IS HELPING LEFT WRIST PAIN NOW 01/15. NO ADDITIONAL REQUESTS OR COMPLAINTS. CALL LIGHT WITHIN REACH.
--- NOTE | 2022-07-18 11:45 | NUR ---
DR HAMILTON UPDATED ON PT STATUS. NEW ORDERS GIVEN FOR ICY-HOT PER PTS REQUEST. ORDERS ENTERED, REPEAT BACK PERFORMED, NO ADDITONAL NEW ORDERS.
--- NOTE | 2022-07-18 12:34 | NUR ---
THIS RN TO ROOM TO CHECK ON PT. PT REMAINS UP TO CHAIR. REPORTS WRIST PAIN IS "A LOT BETTER" WITH ICE PACK, RATES PAIN AT 7/10. ARTHRITIS PAIN CREAM APPLIED, WHICH PT STATES "HELPS." PT DENEIS ADDITIONAL REQUESTS OR COMPLAINTS. LUNCH DELIVERED. PT ASSISTED WITH MEAL TRAY PREP. CALL LIGHT WITHIN REACH.
--- NOTE | 2022-07-18 13:51 | NUR ---
AFTERNOON ASSESSMENT DUE. PT REMAINS UP TO CHAIR. PT VISITING WITH HIS , MIKEY JENSEN UPDATED ON PT STATUS AND PLAN OF CARE. PT RPOERTS 6/10 PAIN IN LEFT WRIST, ICE PACK REFILLED WHICH PT STATES HELPS. PT DENIES NASUEA. PT ALERT AND ORIENTED TO ALL. PT RESPONDING TO QUESTIONS APPROPRIATLY, CONTINUES TO BE SLOW WITH ANSWERES. GENERALIZED WEAKENSS CONTINUES. DESIGN ENGINEERING SPECIALIST STRENGTH WEAKER FROM LEFT HAND WHICH PT REPORTS IS "FROM THE PAIN." LUNG SOUNDS CLEAR IN UPPER LOBES, MILDY CORSE IN BASES. PT ABLE TO COUGH AND CLEAR AIRWAY. IRREGULAR HEART RATE CONTINUES, RATE CONTROLLED IN 80-90'S. ALLEVYNS CHANGED SO THAT WOUNDS CAN BE EXAMINED. BOTH WOUNDS HEALING. WOULD TO BEHIND LEFT SHOULD NEARLY HEALED. PHOTOGRPHS TAKEN.PT DENEIS ADDITIONAL REQUESTS OR COMPLAINTS. CALL LIGHT WITHIN REACH.
--- NOTE | 2022-07-18 14:56 | NUR ---
HOURLY ROUNDING: MEDICATION DUE. PT REMAINS UP TO CHAIR. MEDICATION WITH APPLESAUCE. PT SWALLOWS PILLS WELL WITH APPLE SAUSE, NO COUGHING OR THROAT CLEARING NOTED. REMAINDER OF APPLESAUCE LEFT WITH PT FOR SNACK. PT FEEDING HIMSELF. NO ADDITONAL REQUESTS OR COMPLAINTS. CALL LIGHT WITHIN REACH.
[2022-07-18] MEDS ORDERED: LISINOPRIL10 MG PO (16:46)
[2022-07-18] MEDS ORDERED: LIPITOR20 MG PO (16:46)
[2022-07-18] MEDS ORDERED: METOPROLOL SUCC50 MG PO (16:46)
[2022-07-18] MEDS ORDERED: ADULT ASPIRIN R81 MG PO (16:46)
[2022-07-18] MEDS ORDERED: FLOMAX0.4 MG PO (16:46)
[2022-07-18] MEDS ORDERED: TYLENOL325 MG PO (16:47)
[2022-07-18] MEDS ORDERED: CARBIDOPA-LEVO1 EAC1 PO (16:47)
[2022-07-18] MEDS ORDERED: BENZONATATE100 MG PO (16:47)
[2022-07-18] MEDS ORDERED: PANTOPRAZOLE SO40 MG PO (16:48)
[2022-07-18] MEDS ORDERED: COLACE100 MG PO (16:48)
[2022-07-18] MEDS ORDERED: VITAMIN D3125 MC1 PO (16:48)
[2022-07-18] MEDS ORDERED: MELATONIN3 MG PO (16:48)
--- NOTE | 2022-07-18 17:22 | NUR ---
MEDICATION DUE. THIS RN TO ROOM. PT REMAINS UP TO CHAIR. PT RECENTLY UP TO BEDSIDE COMODE WITH OIL FIELD CASER AND HAD A BOWEL MOVEMENT. PT DENIES PAIN AND NAUSEA. MEDICAITONS GIVEN WITH APPLESAUCE. DINNER DELIVERED. PT ASSISTED WITH MEAL TRY PREPARATIONS. NO ADDITONAL REQUESTS OR COMPLAINTS. CALL LIGHT WITHIN REACH.
--- NOTE | 2022-07-18 17:23 | NUR ---
Nurse Judith and Deb assisted PT from chair to BSC, then back into chair. PT is sitting up in chair waiting for dinner. PT has no other needs at this time, call light is within reach.
--- NOTE | 2022-07-18 18:02 | NUR ---
PT HERE FOR FLU. PT UP WITH 1-2 PERSON ASSIST AND FWW WITH PHYSICAL THERAPY, TO CHAIR, AND TO COMODE THIS SHIFT. PT TOLERATING REGULAR DIET WITH GOOD APPTITIE. HEART REMAINS IRREGULAR PER BASELINE, RATE CONTRLOLLED. PT SLOW TO RESPOND AT TIMES BUT OTHERWISE ORIENTED. PT TOLERATING ROOM AIR. ALLEVYNS CHANGED TO SKIN WOUNDS, PHOTOGRAPHS TAKEN. PTS FAMILY TO BEDSIE TO VISIT THIS SHIFT. PT ANTICIPATING DISCHARGE TO FACILITY TOMORROW. PT USES CALL LIGHT AND MAKES NEEDS KNOWN. PT VOIDING QUANTITY SUFFICIENT.
--- NOTE | 2022-07-18 18:27 | NUR ---
THIS RN TO ROOM TO CHECK ON PT. PT REQUESTS TO GET BACK TO BED. PT AT VERY MINIMAL DINNER. PT DENIES HUNGER OR ADDITONAL FOOD OPTIONS. PT UP TO BEDSIDE COMODE WITH 2 PERSON ASSIST AND FWW. PT HAS A LOT OF TROUBLE STANDING, NEEDING 2 PERSON ASSIST. PT DOES NOT VOID OR HAVE BOWEL MOVEMENT AT THIS TIME. HENRI CARE DONE. 2 PERSON ASSIST BACK TO BED. PT POSITIONED ON LEFT SIDE FOR COMFORT. HEAD OF BED ELEVATED TO 25 DEGREES. CALL LIGHT WITHIN REACH. BED RAILS UP. PT DENIES ADDITONAL REQUSTS OR COMPLAINTS.
--- NOTE | 2022-07-18 19:05 | NUR ---
REPORT RECEIVED FROM DAMON JAEGER. PT RESTING IN BED WITH EYES CLOSED. RR EVEN AND UNLABORED. NO NEEDS IDENTIFIED AT THIS TIME. CALL [facility] IN REACH.
--- NOTE | 2022-07-18 21:35 | NUR ---
IN TO ADMINISTER MEDICATIONS, SEE MAR. PT TAKES PO MEDICATION WITH APPLE SAUCE, COUGHING NOTED. PT ABLE TO CLEAR THORAT. ASSESSMENT COMPLETE. CRACKLES IN RLL AND LLL OF LUNGS. HEART RHYTHM IRREGULAR. PTs O2 SATS DROPPED DOWN TO 87% ON RA, 2L NC PLACED AT PTs O2 SATS INCREASED TO 92%. PT USES commercetoolsCE SPIROMETER TOP 250ML X3 TIMES. PT INCONTINENT OF STOOL. GABINO RN IN TO ASSIST WITH HENRI CARE. ALLEVYN TO LEFT BUTTOCK AND LEFT SHOULDER C/D/I. PT REPORTS NO OTHER NEEDS AT THIS TIME. CALL LIGHT IN REACH. BED ALARM ON.
--- NOTE | 2022-07-19 00:25 | NUR ---
IN TO ROUND ON PT. ORAL TEMPERATURE TAKEN, SEE VITALS. PT REMOVED NC. SPOT CHECK O2 SATS PT IS AT 88% ON RA. 2LNC PLACED AND PTs O2 SATS INCREASE TO 90%. PT DENIES ANY OTHER NEEDS AT THIS TIME. CALL LIGHT IN REACH. BED ALARM ON.
--- NOTE | 2022-07-19 00:32 | NUR ---
PATIENT HAVING A COUGHING FIT, SP02 70% ON 1L 02 PER NC. PATIENT PLACED IN HIGH FOWLERS POSITION, ORAL SUCTION USED AT THIS TIME. PATIENT COUGHED UP A MODERATE SIZED AMOUNT OF DARK BROWN PHLEGM. PATIENT RECOVERED QUCIKLY AFTER COUGHING UP PHLEGM, SP02 INCREASED TO 92% ON 1L. HOB LEFT ELEVATED, CONTINUOUS SP02 MONITOR INTACT. PATIENT CLOSE TO RN STATION. PATIENT REPORTS SHE IS OK AT THIS TIME, AIRWAY IS CLEAR.
--- NOTE | 2022-07-19 02:15 | NUR ---
IN TO ROUND ON PT. PT NC OFF, SPOT CHECK O2 SATS. PTs 02 AT 88% ON RA. 2L NC PLACED, O2 SATS IMPROVE TO 92%. ASSESSMENT COMPLETE. EXPIRATORY WHEEZINE HEARD IN ALL LOBES OF LUNGS. CRACKLES IN LLL. COUGHING NOTED. SUCTION PLACED AT BEDSIDE PER PT REQUEST FOR COMFORT. PT REPORTS NO OTHER NEEDS AT THIS TIME.CALL LIGHT IN REACH. BED ALARM ON.
--- NOTE | 2022-07-19 04:56 | NUR ---
IN TO ROUND ON PT. PT REMOVED NC. SPOT CHECKED O2 SATS, 91% ON RA. PT LEFT ON RA. PT INCONTINENT OF URINE. DAMON WHITESIDE IN TO ASSIST WITH HENRI CARE. PT BOOSTED UP IN BED. PT REPORTS NO OTHER NEEDS AT THIS TIME. CALL LIGHT IN REACH. BED ALARM ON.
--- NOTE | 2022-07-19 06:57 | NUR ---
THIS RN REVIEWED ORIENTEE DAMON FERNANDO'S DOCUMENTATION FROM 0100 TO SHIFT CHANGE.
--- NOTE | 2022-07-19 07:30 | NUR ---
REPORT RECEIVED FROM DAMON FERNANDO. PT UP TO CHAIR, PT DENIES PAIN AND NAUSEA. OXGYEN SATURATIONS OF 91% ON ROOM AIR. PT DENIES REQUESTS OR COMPLAINTS. CALL LIGHT WITHIN REACH.
--- NOTE | 2022-07-19 07:51 | NUR ---
MORNING ASSESSMENT AND MEDICATION DUE. PT UP TO CHAIR. PT REPOSITIONED FOR COMFORT AND OPTIMAL BREATHING IN CHAIR. PT NASUEA. IV DC'D PT IS PLANNING TO TRANSFER TO REHAB FACILITY THIS MORNING. PT ALERT AND OREINTED TO ALL. PT CONTINUES TO BE SLOW TO RESPOND AND VERY SLOW TO MOVE BUT ANSWERS AND ASKS QUESTIONS APPROPRIATLY. PT INITIALLY DENIES PAIN WHEN ASKED BUT THEN REPORTS 9/10 PAIN IN HIS LEFT WRIST. ICY HOT APPLIED. LUNG SOUNDS CLEAR IN UPPER LOBES, EXPIRATORY WHEEZES NOTED IN BASES. HEART TONES IRREGULAR PER BASELINE, APICAL PULSE OF 95. DEPENDS DRY AT THIS TIME. DR HAMILTON TO BEDSIDE FOR ROUNDS. UPDATED ON PT STATUS. NO ADDITIONAL NEW ORDERS. MEDICATIONS GIVEN WITH APPLESAUSE. PT SWOLLOWS PILLS WELL WITH APPLESAUCE. NO SIGNS OF COUGHING OR THROAT CLEARING. NO ADDIITONAL NEEDS AT THIS TIME. CALL LIGHT WITHIN REACH.
--- NOTE | 2022-07-19 07:59 | NUR ---
CHART UPDATE, PASSR AND ORDER FAXED TO [facility]. PACKET PLACED AT MS DESK FOR TRANSPORT WITH PATIENT.
--- NOTE | 2022-07-19 10:28 | NUR ---
REPORT CALLED TO KARMEN GARNER, AT [facility]. PASCUAL STATES HER QUESTIONS HAVE BEEN ANSWERED.
== END 2022-07-19 09:10 | DRG 195 ==
LOC: ED 09:36 → MS 09:38
PROVIDERS: ADMIT Family Medicine; ATTEND Internal Medicine
DX: J10.01 Influenza due to other identified influenza virus with the same other identified influenza virus pneumonia (principal); G20 Parkinson's disease; Z20.822 Contact with and (suspected) exposure to COVID-19; F02.80 Dementia in other diseases classified elsewhere, unspecified severity, without behavioral disturbance, psychotic disturbance, mood disturbance, and anxiety; Z66 Do not resuscitate; E83.42 Hypomagnesemia; E87.6 Hypokalemia; I25.2 Old myocardial infarction; Z87.891 Personal history of nicotine dependence; Z95.5 Presence of coronary angioplasty implant and graft; Z88.0 Allergy status to penicillin; Z79.899 Other long term (current) drug therapy
CPT/HCPCS: 36415; 51701; 71045; 80053; 81001; 83605; 83735; 84100; 85025; 85610; 85730; 87040; 87502; 93005; 93010; 97110; 97162; 97166; 97530; 97535; 99285-25; A9270; C9803; J1650; J7030; U0003

== ENCOUNTER 2022-12-01 07:37 | Inpatient (IN) | payer MEDICARE, OTHER ==
[2022-12-01] VITALS (8 sets, daily range): BP systolic 98–148; BP diastolic 61–92
[~2022-12-01] VITALS: Ht 165.1 cm; Wt 63.5 kg
[~2022-12-01 07:37] MED LIST changes: +BENZONATATE100 MG PO; +CARBIDOPA-LEVO1 EAC1 PO; +COLACE100 MG PO; +FLOMAX0.4 MG PO; +MELATONIN3 MG PO; +TYLENOL325 MG PO
--- NOTE | 2022-12-01 11:05 | NUR ---
12/01/22 1105 Omaira Tate 1030 PT TO PACU SLEEPING O2 PLACED VIA MASK, FOGGING NOTTED IN MASK. KERR CATH IN PLACE, DRAINING WELL 100ML OF CLEAR YELLOW URINE IN KERR BAG.
--- NOTE | 2022-12-01 11:44 | NUR ---
Patient arrives from PACU in bed with DAMON Tovar, report at bedside. Dressing to left hip with scant shadowing noted. ice to site, no cryocuff ordered. Heel protectors placed on patient, SCD's and LUIS's in place. Assessment completed. No s/s or c/o pain at this time. Call light in reach, bed rails up.
--- NOTE | 2022-12-01 13:07 | NUR ---
ADMINISTERED SCHEDULED TRANS ACID. PT MORE AND AWAKE AND TALKATIVE. DENIES PAIN OR DISCOMFORT ATT. DRESSING INTACT WITH SMALL SHADOW.
--- NOTE | 2022-12-01 13:51 | NUR ---
ALERT, DRINKING WATER WITHOUT DIFFICULTY. VITALS OBTAINED, ICE REMAINS ON LEFT HIP AT THIS TIME. DRESSING REMAINS UNCHANGED. RADIAL PULSE VERIFIED AT 94 BPM DUE TO A-FIB, MONITOR READING 138-146.
--- NOTE | 2022-12-01 15:08 | NUR ---
SPOKE TO PATIENT ABOUT HIS PLAN OF CARE. PATIENT IS HARD OF HEARING.PATIENT LIVES WITH HIS WHO WORKS DURING THE WEEK.PATIENT PLANS TO GO HOME TO HIS HOUSE.PATIENT HAS GRAB BARS AND RAMPS IN HIS HOUSE. PATIENT HAS FALLS AT HOME BECAUSE OF BALANCE ISSUES FROM [place]. PATIENT HAD A HIP PINNING TODAY AND IS AWAKE AND ALERT TO ANSWER QUESTIONS. PATIENT HAS A WALKER, CANE AND A WHEELCHAIR. PATIENT CAN AFFORD A HOUSE PAYMNET AND MEALS. PLACMENT WOULD BE HOME WITH HOME OR SNF/ROCKY DEPENDING ON PT/OT EVALS. PATIENT'S 1ST CHOICE IS TO GO HOME WITH HIS .
--- NOTE | 2022-12-01 15:47 | NUR ---
DENIES PAIN AT THIS TIME, UP IN CHAIR, ICE TO LEFT HIP. NO CHANGE TO DRESSING NOTED. CALL LIGHT IN REACH, BED RAILS UP X2.
--- NOTE | 2022-12-01 19:18 | NUR ---
REPORT RECEIVED FROM DAMON MENDOZA. PT SITTING UP IN CHAIR. PT DENIES ANY NEEDS AT THIS TIME. CALL LIGHT IN REACH.
--- NOTE | 2022-12-01 19:30 | NUR ---
PATIENT CALLED FOR ICE WATER. PROVIDED. NO OTHER NEEDS AT THIS TIME.
--- NOTE | 2022-12-01 20:38 | NUR ---
SCHEDULED MED PROVIDED. NO OTHER NEEDS AT THIS TIME. CALL LIGHT IN REACH.
--- NOTE | 2022-12-01 20:54 | NUR ---
IN TO ADMINISTER MEDICATIONS, SEE MAR. PT TAKES PO MEDICATIONS WITH NO ISSUES. ASSESSMENT COMPLETE. LUNG SOUNDS CLEAR IN RUL AND TYRESE. COARSE IN RLL. COARSE CRACKLES IN LLL. BOWEL TONES ACTIVE. PT DENIES PAIN AT THIS TIME. PEDAL PULSES PALPABLE AND EQUAL BILATERALLY. PT DENIES NUMBNESS OR TINGLING. DRESSING TO RIGHT HP D/I WITH SCANT AMOUNT OF SHADOWING NOTED. HEART TONES IRREGULAR. EDEMA NOTED TO BLE. PT DENIES ANY OTHER NEEDS AT THIS TIME. CALL LIGHT IN REACH.
--- NOTE | 2022-12-01 21:19 | NUR ---
PT BACK INTO BED. ASSISTANCE FROM CATALINA, VICTORINO AND FWW FROM CHAIR TO BED. I&Os COMPLETE. SCDs IN PLACE. HEEL PROTECTORS IN PLACE. CALL LIGHT IN REACH. BED ALARM ON. PT DENIES ANY OTHER NEEDS AT THIS TIME.
--- NOTE | 2022-12-01 22:49 | NUR ---
IN TO ROUND ON PT. PT RESTING IN BED WITH EYES CLOSED. RR EVEN AND UNLABORED. ICE PACK PLACED TO RIGHT HIP WITH TOWEL BETWEEN PTs SKIN AND ICE PACK. NO OTHER NEEDS IDENTIFIED AT THIS TIME. CALL LIGHT IN REACH. BED ALARM ON.
--- NOTE | 2022-12-01 23:10 | NUR ---
IN TO ADMINISTER MEDICATION, SEE MAR. PT RESTING IN BED WITH EYES CLOSED. RR EVEN AND UNLABORED. PT AWAKENS WHEN ADDRESSED. PT DENIES ANY OTHER NEEDS AT THIS TIME. CALL LIGHT IN REACH. BED ALARM ON.
[2022-12-02 01:27] VITALS: BP 102/50
--- NOTE | 2022-12-02 01:35 | NUR ---
IN CPOX ALARMING. PT O2 SATS AT 86% ON RA. PLACED PT ON 2L OXYMASK AND O2 SATS INCREASE TO 96%. NOTED PT BREATHING FROM MOUTH WHILE RESTING WITH EYES CLOSED RR EVEN AND UNLABORED UPON ENTERY TO ROOM. PT AWAKENS AND RESPONDS WHEN ADDRESSED. VITALS AND I&Os COMPLETE. BLADDERSCANNED PT 2ML NOTED. PT RESTING IN BED. PT DENIES ANY OTHER NEEDS AT THIS TIME. CALL LIGHT IN REACH. BED ALARM ON.
--- NOTE | 2022-12-02 02:15 | NUR ---
IN TO ADMINISTER MEDICATION, SEE MAR. PT DENIES PAIN AT THIS TIME. ASSESSMENT COMPLETE. LUNG SOUNDS RHONCHI IN RUL AND TYRESE. DIMINISHED IN RLL. CRACKLES IN LLL. BOWEL TONES ACTIVE. HEART TONES IRREGULAR. DRESSING TO L HIP D/I WITH SCANT AMOUNT OF SHADOWING NOTED. EDEMA NOTED TO L HIP. EDEMA NOTED TO BILAT FEET. PEDAL PULSES PALPABLE AND EQUAL. PT DENIES ANY OTHER NEEDS AT THIS TIME. CALL LIGHT IN REACH. BED ALARM ON. ICE PACK REMOVED FROM L HIP.
--- NOTE | 2022-12-02 06:09 | NUR ---
IN TO ADMINISTER MEDICATIONS, SEE MAR. PT TAKES PO MEDICATION WITH NO ISSUES. VITALS AND I&Os COMPLETE. KERR CARE PROVIDED. PT DENIES PAIN. PT REQUESTING COFFEE, COFFEE PROVIDED. ICE PACK APPLIED TO L HIP. TITRATED PT TO RA. PT O2 SATS AT 94% ON RA. PT DENIES ANY OTHER NEEDS AT THIS TIME. CALL LIGHT IN REACH. BED ALARM ON
[2022-12-02 06:10] VITALS: BP 115/69
--- NOTE | 2022-12-02 06:25 | NUR ---
THIS RN CALLED DR. RICHEY REGARDING PTs LOW URINE OUTPUT. NEW ORDERS RECEIVED, VERIFIED WITH READ BACK. 500CC BOLUS OF LR NOW OVER 1 HOUR.
--- NOTE | 2022-12-02 06:32 | NUR ---
LR BOLUS STARTED, SEE MAR. PT DENIES ANY OTHER NEEDS AT THIS TIME. CALL LIGHT IN REACH. BED ALARM ON.
--- NOTE | 2022-12-02 08:17 | NUR ---
NOTES REQ. FROM [facility].
[2022-12-02] MEDS ORDERED: LISINOPRIL5 MG PO (08:19)
--- NOTE | 2022-12-02 08:30 | NUR ---
REPORT RECEIVED FROM NIGHT RN AND PT CARE RESUMED. PT. IS ALERT AND ORIENTED TO SELF AND PLACE. HE IS SLOW TO RESPOND. LEFT HIP DRESSING DRY AND INTACT WITH A SCANT AMOUNT OF OLD DRAINAGE. ICE PACK IN PLACE. PT HEAVY 2PA WITH FWW TO CHAIR AND WAS NOT ABLE TO MOVE FOOT AND PIVOTED TO CHAIR. ASSESSMENT COMPLETED AND CAR RIDER. DISCUSSED POC AND BROUGHT JUICE. ASSISTED WITH CALLING . CALL LIGHT IN REACH.
[2022-12-02 09:03] VITALS: BP 110/54
--- NOTE | 2022-12-02 10:12 | NUR ---
LEFT MESSAGE FOR JEAN AT [facility] TO DISCUSS PATIENT MEDICAID BENEFIT.
--- NOTE | 2022-12-02 10:37 | NUR ---
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 JEAN STATES IN THE PAST PATIENT MIKEY CONSIDERED MOVING INTO ASSISTED LIVING WITH THE PATIENT, BUT THEN DECLINED. WILL CONTACT MIKEY TO DISCUSS FURTHER PLACMENT OPTIONS FOR PATIENT.
--- NOTE | 2022-12-02 10:40 | NUR ---
SPOKE WITH PATIENT MIKEY. SHE STATES AFTER SPEAKING WITH THE PHYSICAL THERAPIST SHE WOULD LIKE PATIENT TO TRANSFER TO T. ADVISED WILL SEND PATIENT CHART TO RAND AT [facility] FOR REVIEW.
--- NOTE | 2022-12-02 10:50 | NUR ---
[facility] CALLED AND UPDATED GIVEN AFTER DISCUSSING WITH CASE MANAGEMENT.
[2022-12-02] MEDS ORDERED: ZESTRIL10 MG PO (10:57)
--- NOTE | 2022-12-02 11:06 | NUR ---
ROUNDING ON PT. HE IS RESTING IN BED WITH EYES CLOSED. RESP. EVEN AND UNLABORED.
--- NOTE | 2022-12-02 12:11 | NUR ---
PT. ASSISTED WITH CUTTING LUNCH AND REPOSITIONING. DENIES PAIN AT THIS TIME. CALL LIGHT IN REACH.
--- NOTE | 2022-12-02 12:47 | NUR ---
PT. CALLED FOR ASSISTANCE REMOVING LUNCH TRAY. HELPED WITH REPOSITIONING AND DENIES FURTHER NEEDS. CALL LIGHT IN [facility].
[2022-12-02 13:46] VITALS: BP 98/60
--- NOTE | 2022-12-02 13:52 | NUR ---
Received a call from . They will accept Elan tomorrow. They would like him there around 10:00. Left a message with pts , Marita.
--- NOTE | 2022-12-02 14:09 | NUR ---
Orders printed, PAS[facility], and nonemergent transport sheet left for Dr. Vazquez at [facility] to complete.
--- NOTE | 2022-12-02 14:10 | NUR ---
Pt does not need a covid test for [place].
--- NOTE | 2022-12-02 15:30 | NUR ---
MED REC COMPLETE
--- NOTE | 2022-12-02 15:56 | NUR ---
ROUNDING ON PT. ASSISTED WITH PHONE CALL. DENIES FURTHER NEEDS OR PAIN. CALL LIGHT IN [place]ACH.
[2022-12-02 17:53] VITALS: BP 107/66
--- NOTE | 2022-12-02 18:38 | EKG ---
[facility] [address] [place] [address] Signed Atrial fibrillation with premature ventricular or aberrantly conducted complexes Junctional ST depression, probably normal Abnormal ECG When compared with ECG of 12-JUL-2022 10:15, Atrial fibrillation has replaced Sinus rhythm Vent. rate has decreased BY 42 BPM Criteria for Inferior infarct are no longer present Nonspecific T wave abnormality no longer evident in Inferior leads Confirmed by PORFIRIO PATEL MD ([id number]) on 12/02/2022 6:38:02 PM Electronically Signed By: PORFIRIO PATEL MD 12/02/22 1838 PATIENT NAME: LEXY REZA Electrocardiogram DATE OF : 43 PHYSICIAN: PORFIRIO PATEL MD REPORT #: [id number] REPORT IS CONFIDENTIAL AND NOT TO BE RELEASED WITHOUT AUTHORIZATION
--- NOTE | 2022-12-02 19:15 | NUR ---
REPORT RECEIVED FROM DAMON ESTEBAN. PT RESTING IN BED WITH EYES CLOSED RR EVEN AND UNLABORED. NO NEEDS IDENTIFIED AT THIS TIME. CALL LIGHT IN REACH.
--- NOTE | 2022-12-02 19:40 | NUR ---
THIS RN NOTIFIED BY VICTORINO KIMBLE. IN ROOM BLOOD NOTED TO PTs BEDDING. NOTED PT HAS PULLED IV OUT. GAUZE AND COBAN APPLIED. IV CATHETER WNL. VICTORINO KIMBLE AND VICTORINO CHAVEZ IN TO ASSIST WITH LINEN CHANGE. NO OTHER NEEDS FROM THIS RN AT THIS TIME.
--- NOTE | 2022-12-02 20:18 | NUR ---
SCOTT AND THIS DELIVERY ASSOCIATE ARRIVED INTO PT. ROOM TO PT HAVING REMOVED IV. PT. BED CHANGED AND FRESH GOWN DONNED. PRIMARY NURSE NOTIFIED. CALL LIGHT LEFT WITHIN REACH. NO OTHER IMMEDIATE NEEDS AT THIS TIME.
--- NOTE | 2022-12-02 20:31 | NUR ---
THIS RN CALLED DR. RICHEY TO INFORM HIM PT HAS PULLED IV OUT. NEW ORDERS RECEIVED, VERIFIED WITH READ BACK. "OKAY TO LEAVE IV OUT AT THIS TIME." PER DR. RICHEY IT IS OKAY TO GIVE PRN PAIN MEDICATION IF PT SO NEEDS.
[2022-12-02 21:02] VITALS: BP 124/71
--- NOTE | 2022-12-02 21:08 | NUR ---
IN TO ADMINISTER MEDICATIONS, SEE MAR. PT SITTING UP IN BED. PT RESPONDS WHEN ADDRESSED. PT DENIES PAIN AT THIS TIME. AND DENIES PRN PAIN MEDICATION WHEN OFFERED. VITALS AND I&Os COMPLETE. ASSESSMENT COMPLETE. LUNG SOUNDS RHONCHI IN RUL, TYRESE AND RLL. COARSE THROUGHOUT. DIMININSHED IN RLL AND LLL. BOWEL TONES ACTIVE. DRESSING TO L HIP D/I WITH SMALL AMOUNT OF SHADOWING NOTED. EDEMA NOTED TO L HIP. BRUISE TO LLQ NOTED. PEDAL PULSES PALPABLE AND EQUAL. PT DENIES ANY OTHER NEEDS AT THIS TIME. CALL LIGHT IN REACH.
--- NOTE | 2022-12-02 23:38 | NUR ---
IN WITH PATRICK, RN PT REQUESTING TO USE RESTROOM. 2PA PIVOT WITH FWW FROM BED TO BSC. THIS RN TO STAY WITH PT UNTIL FINISHED.
--- NOTE | 2022-12-03 00:39 | NUR ---
PT REPORTING PAIN 9/10 IN LEFT HIP AND REQUESTING PRN PAIN MEDICATIONS. PRN PAIN MEDICATION ADMINISTERED, SEE MAR. NGUYEN RN IN TO ASSIST WITH TRANSFERRING PT FROM BSC BACK TO BED. 2PA PIVOT WITH FWW FROM BSC TO BED. PT REPOSITIONED IN BED. SCDs, LUIS HOSE AND HEEL PROTECTORS IN PLACE. PT DENIES ANY OTHER NEEDS AT THIS TIME. CALL LIGHT IN REACH. BED ALARM ON.
--- NOTE | 2022-12-03 03:40 | NUR ---
IN TO ROUND ON PT. PT SITTING UP IN BED WITH EYES OPEN. RR EVEN AND UNLABORED. WHEN ENTERING ROOM PT IS NOTED TO HAVE GOWN REMOVED. REPLACED GOWN AND REMOVED A FEW BLANKETS PER PT REQUEST. ASSESSMENT COMPLETE. LUNG SOUNDS CLEAR IN RUL AND TYRESE. DIMINISHED AND COARSE IN RLL AND LLL. PT REPORTING PAIN IN L HIP /10. ICE PACK PROVIDED. DRESSING TO L HIP D/I WITH SMALL AMOUNT OF SHADOWING NOTED. PEDAL PULSES PALPABLE AND EQUAL. HEART TONES IRREGULAR. PT DENIES ANY OTHER NEEDS AT THIS TIME. CALL LIGHT IN REACH. BED ALARM ON.
[2022-12-03 05:08] VITALS: BP 131/64
--- NOTE | 2022-12-03 05:13 | NUR ---
IN WITH DAMON WHITESIDE. PT SITTING UP IN BED. RR EVEN AND UNLABORED. PT RESOPNDS WHEN ADDRESSED. VITALS AND I&Os COMPLETE. PT REPORTING PAIN 10 IN L HIP. PRN PAIN MEDICATION ADMINISTERED, SEE MAR. MORNING SCHEDULED MEDICATION ADMINISTERED, SEE MAR. PT TAKES PO MEDICATIONS WITH NO ISSUES. ICE PACK REMOVED. WATER PROVIDED. PT DENIES ANY OTHER NEEDS AT THIS TIME. CALL LIGHT IN REACH. BED ALARM ON.
--- NOTE | 2022-12-03 06:54 | OR ---
[facility] [address], [place] [address] Signed DATE OF OPERATION: 12/01/2022 SURGEON: Ildefonso Tate MD PREOPERATIVE DIAGNOSIS: Intertrochanteric hip fracture, left. POSTOPERATIVE DIAGNOSIS: Intertrochanteric hip fracture, left. PROCEDURE PERFORMED: Open reduction and internal fixation of left hip. MANAGER BAR: None. ANESTHESIA: Spinal. BLOOD LOSS: 125 mL. IMPLANTS: Four hole 135 DHS with 95 lag screw and four distal screws. BRIEF HISTORY: Elan is a 77-year-old gentleman who attempted to sit in his walker today when it slipped out from behind him and he fell landing on his left hip. He was transported per EMS to the emergency department where radiographs showed a displaced intertrochanteric hip fracture. Risks and benefits of operative treatment were discussed with him. He had been n.p.o. all night and medically he was in good shape, so we elected to go ahead and proceed with the surgery right immediately. PROCEDURE IN DETAIL: Once consent was obtained, he was taken to the operating room. After adequate anesthesia, he was placed on the operating room table. A final radiograph was taken in the OR to confirm that there was no femoral neck extension. The left leg was then placed in traction and internally rotated slightly. The left leg was placed in foot rest and abducted. The C-arm was brought in, good radiographs were obtained. The hip was then prepped and draped in a standard sterile fashion. The lateral side of the Electronically Signed By: ILDEFONSO TATE MD 12/03/22 0654 PATIENT NAME: ELAN REZA OPERATIVE REPORT DATE OF : 43 REPORT #: [id number] PHYSICIAN: ILDEFONSO ATTE MD PCP: CASE KERR MD REPORT IS CONFIDENTIAL AND NOT TO BE RELEASED WITHOUT AUTHORIZATION [facility] [address], [place] [address] Signed femur was then approached through a 4 inch incision, carried through skin and subcutaneous tissue. IT band was divided longitudinally and the vastus lateralis was split bluntly. The 135 guide for the DHS set was then placed along the lateral margin of the femur and aligned with the femoral neck. The guide pin was then advanced from the lateral femur across the femoral neck into a center-center position on the femoral head. The guide pin was measured to a 95 and a 95 lag screw was then placed over the guide pin and advanced. The patella was well centered in the femoral head. There was good bone purchase. The four hole DHS was then placed over the lag screw and advanced until was flushed with the lateral femur. It was then centered on the lateral radiograph. Four distal screws were drilled and appropriate length screws were placed. The guide pin was removed from the lag screw. The final radiograph showed good screw lengths, anatomic reduction of the fracture and placement of the lag screw. The wound was copiously irrigated with normal saline, closed with #2 Stratafix for the fascia layer, 0 Stratafix for the subcutaneous layer and jaci for the skin. The wound was dressed with an Aquacel dressing. He was awakened, taken to the recovery room in satisfactory condition. All sponge, needle, and instrument counts were correct. Ildefonso Tate MD BA/MODL /[id number] Copies: ~ Electronically Signed By: ILDEFONSO TATE MD 12/03/22 0654 PATIENT NAME: ELAN REZA OPERATIVE REPORT DATE OF : 43 REPORT #: [id number] PHYSICIAN: ILDEFONSO TATE MD PCP: CASE KERR MD REPORT IS CONFIDENTIAL AND NOT TO BE RELEASED WITHOUT AUTHORIZATION
--- NOTE | 2022-12-03 08:30 | NUR ---
PT. ASSISTED WITH CUTTING BREAKFAST AND GETTING UP TO EAT. HE DENIES PAIN. MEDS ADMIN. CALL LIGHT IN REACH.
[2022-12-03] MEDS ORDERED: ELIQUIS5 MG PO (08:47)
[2022-12-03] MEDS ORDERED: HYDROCODON-ACE1 EA11 PO (08:48)
--- NOTE | 2022-12-03 09:24 | NUR ---
ORDERS, PASRR, MARS AND ORIGINAL RX FAXED TO [facility]. AWAITING DC SUMMARY.
--- NOTE | 2022-12-03 10:00 | NUR ---
REPORT CALLED TO DONYA
[2022-12-03 10:05] VITALS: BP 113/77
--- NOTE | 2022-12-03 10:10 | NUR ---
NON EMERGENT TRANSFER PERSONELL ARRIVED TO TRANSFER PT TO [facility]. PT DRESSED WITH 2 PERSON ASSIST. KERR CATHETER EMPTIED OF 125ML YELLOW URINE. VITAL SIGNS STABLE. PACKET GIVEN TO TRANSFER GISELE. REPORT GIVEN TO TRANSFER GISELE BY CONNIE ESTEBAN PRIMARY RN. PT AT BEDSIDE AND UP TO DATE. ALL BELONGINGS SENT WITH PT. NO ADDITIONAL REQUESTS OR CONCERNS.
--- NOTE | 2022-12-03 10:45 | NUR ---
DONYA JOSE CALLED AND STATES PT IS "GURGLY" AND C/O SOB. DISCUSSED WITH HER CHECKING SPO2 AND USING I.S. AND BRINGING PT. TO MD IF HYPOXIC.
--- NOTE | 2022-12-03 11:00 | DS ---
[facility] [address], [place] [address] Signed ADMISSION DATE: 12/01/2022 DISCHARGE DATE: 12/03/2022 ADMISSION DIAGNOSIS: Left intertrochanteric hip fracture. DISCHARGE DIAGNOSIS: Left intertrochanteric hip fracture. PROCEDURE PERFORMED: During this hospitalization, open reduction and internal fixation of left hip. BRIEF HISTORY: Elan is a 77-year-old gentleman, who fell on Tuesday fracturing his hip. He had been n.p.o. and was stable for surgery, so we took him to the operating room on Tuesday morning and fixed his hip fracture. He lives with a debilitated and this is fairly poor functioning himself. He was felt to be stable for discharge to the correction facility for continued inpatient rehab. He will be nonweightbearing on his left lower extremity and will need maximum assist. He did well during this hospitalization. His blood pressure and hematocrit were stable. He will be discharged to the nursing facility with pain medication of Otis and a new prescription for Eliquis. He will follow up with me in 10-14 days. If he has any problems, he will notify me or the nursing facility well. Ildefonso Tate MD BA/FRANK /[id number] Copies: ~ Electronically Signed By: ILDEFONSO TATE MD 12/03/22 1100 PATIENT NAME: ELAN REZA DISCHARGE SUMMARY DATE OF : 43 REPORT #: [id number] PHYSICIAN: ILDEFONSO TATE MD PCP: CASE KERR MD REPORT IS CONFIDENTIAL AND NOT TO BE RELEASED WITHOUT AUTHORIZATION
== END 2022-12-03 10:10 | DRG 482 ==
LOC: ED 07:37 → DSVR 09:02 → MS 09:02
PROVIDERS: ADMIT Specialist; ATTEND Specialist
PROC: 0QS704Z Reposition Left Upper Femur with Internal Fixation Device, Open Approach (ICD-10-PCS; principal; 2022-12-01 09:00)
DX: S72.142A Displaced intertrochanteric fracture of left femur, initial encounter for closed fracture (principal); Z20.822 Contact with and (suspected) exposure to COVID-19; K21.9 Gastro-esophageal reflux disease without esophagitis; E78.5 Hyperlipidemia, unspecified; G20 Parkinson's disease; F02.80 Dementia in other diseases classified elsewhere, unspecified severity, without behavioral disturbance, psychotic disturbance, mood disturbance, and anxiety; N40.0 Benign prostatic hyperplasia without lower urinary tract symptoms; I48.0 Paroxysmal atrial fibrillation; C61 Malignant neoplasm of prostate; K44.9 Diaphragmatic hernia without obstruction or gangrene; I25.10 Atherosclerotic heart disease of native coronary artery without angina pectoris; I11.0 Hypertensive heart disease with heart failure; I50.9 Heart failure, unspecified; Z95.5 Presence of coronary angioplasty implant and graft; I25.2 Old myocardial infarction; Z87.891 Personal history of nicotine dependence; Z88.0 Allergy status to penicillin; Z79.82 Long term (current) use of aspirin; Z79.899 Other long term (current) drug therapy; W18.39XA Other fall on same level, initial encounter
CPT/HCPCS: 01210; 36415; 71045; 73502; 80048; 80053; 83735; 83880; 85025; 87502; 93005; 93010; 96374; 96375; 97110; 97162; 99285-25; A9270; C1713; C9803; J0690; J1100; J1160; J1170; J1885; J2001; J2250; J2274; J2405; J2704; J2765; J3010; J3475; J7121; U0003

== ENCOUNTER 2024-07-03 18:28 | Emergency (ER) | payer MEDICARE, OTHER ==
[~2024-07-03] VITALS: Ht 165.1 cm; Wt 64.0 kg
[~2024-07-03 18:28] MED LIST changes: +ELIQUIS5 MG PO; +LISINOPRIL5 MG PO; +ZESTRIL10 MG PO
[2024-07-03] MEDS ORDERED: TAMSULOSIN HCL0.4 MG PO (19:09)
[2024-07-03] MEDS ORDERED: ONDANSETRON HCL4 MG PO (19:09)
[2024-07-03] MEDS ORDERED: BACTRIM DS TAB1 EACH PO (19:10)
[2024-07-03] MEDS ORDERED: AZITHROMYCIN/DEXTROSE 500 MG/250 ML PIGGYBACK IV ONE (19:15)
[2024-07-03] MEDS ORDERED: ALBUTEROL/IPRATROPIUM 3 ML NEB INH ONE (19:15)
[2024-07-03 19:44] LABS: BASOPHILS 0.4 % (0-2); EOSINOPHILS 0.8 % (0-6); HEMATOCRIT 36.8 % (35.0-50.0); HEMOGLOBIN 12.2 g/dL (12.0-18.0); LYMPHOCYTES 4.6 % (24-44); MCH 29.4 (27-36); MCV 89.1 fl (81-99); NEUTROPHILS 84.2 % (39-80); PLATELET COUNT 184 K/uL (140-440); RBC 4.13 M/ul (4.3-5.7); RDW 15.7 (10.5-15.0)
[2024-07-03 19:59] LABS: ALBUMIN 2.8 g/dL (3.4-5.0); ALBUMIN/GLOBULIN RATIO 0.74 (1.1-2.4); ANION GAP 13.4 (7-21); BILIRUBIN, TOTAL 1.6 ng/dL (0.2-1.0); BUN/CREATININE RATIO 12.12 (6.0-28.6); CALCIUM 8.2 mg/dL (8.5-10.1); CREATININE, SERUM 0.66 mg/dL (0.70-1.30); POTASSIUM 3.4 mmol/L (3.5-5.1); PROTEIN, TOTAL 6.6 g/dL (6.4-8.2)
[2024-07-03 20:22] LABS: INFLUENZA B NAA NEGATIVE (NEGATIVE); RESPIRATORY SYNCYTIAL VIR NAA NEGATIVE (NEGATIVE)
[2024-07-03] MEDS ORDERED: LEVOFLOXACIN750 MG PO (20:44)
[2024-07-03 21:58] VITALS: BP 124/79
== END 2024-07-03 21:59 | disposition home or self-care (01) ==
LOC: ED 18:28
PROVIDERS: Family Medicine
DX: J18.9 Pneumonia, unspecified organism (principal); I25.2 Old myocardial infarction; G20.A1 Parkinson's disease without dyskinesia, without mention of fluctuations; Z87.891 Personal history of nicotine dependence; Z88.0 Allergy status to penicillin; Z79.82 Long term (current) use of aspirin; Z66 Do not resuscitate; Z86.73 Personal history of transient ischemic attack (TIA), and cerebral infarction without residual deficits; Z95.5 Presence of coronary angioplasty implant and graft; Z79.899 Other long term (current) drug therapy; Z11.52 Encounter for screening for COVID-19
CPT/HCPCS: 36415; 71045; 80053; 85025; 87502; 94640; 96365; 99285-25; J0456; U0002

== ENCOUNTER 2024-07-06 01:46 | Emergency (ER) | payer MEDICARE, OTHER ==
[~2024-07-06] VITALS: Ht 165.1 cm; Wt 59.2 kg
[~2024-07-06 01:46] MED LIST changes: +BACTRIM DS TAB1 EACH PO; +LEVOFLOXACIN750 MG PO; +ONDANSETRON HCL4 MG PO; +TAMSULOSIN HCL0.4 MG PO
[2024-07-06] MEDS ORDERED: ALBUTEROL/IPRATROPIUM 3 ML NEB ONE (01:48)
--- OUTSIDE RECORDS SUMMARY | 2024-07-06 01:53 | XMS ---
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 Events No recent Security Events currently on file CRITERIA MET - [facility] - 2 Visits in 30 Days CARE PROVIDERS Krupa Dudley Assistant Store Manager/Blind Installer 12/07/2023-Current PHONE: [phone] CYNDIE MÉNDEZ Nurse Practitioner: Family Current PHONE: [phone] LON MARTINEZ Piggyback Clerk: Foot \T\ Ankle Surgery Current PHONE: [phone] MALIKA BERGMAN Internal Medicine Current PHONE: [phone] RUBY CHIU Physical Medicine \T\ Rehabilitation Current PHONE: [phone] STACI COLE Physician Licensed Nuclear Operator Current PHONE: Unknown BENNETT GONZALEZ Physician Licensed Nuclear Operator Andreina BELTRAN PHONE: [phone] OMARI ORTEGA Emergency Medicine Current PHONE: [phone] ESME CARTER Nurse Practitioner: Family Current PHONE: [phone] SARAH PARTIDA Nurse Practitioner: Adult Health Andreina ACEVES PHONE: [phone] HAYDEN BOWIE Internal Medicine Current PHONE: [phone] COLBY HUERTAS Nurse Practitioner: Psychiatric/Mental Health Current PHONE: [phone] COLLEEN RASHEED Nurse Practitioner Andreina MARIAA PHONE: [phone] [facility] Current PHONE: Unknown BALTA KNAPP [facility] Current PHONE: Unknown MARCIA JIMENEZ Nurse Practitioner: Family Current PHONE: Unknown [facility] has no Care Guidelines for this patient. Jonathon VISIT COUNT (12 MO.) 2 [facility] TOTAL 2 NOTE: Visits indicate total known visits. ED/UCC VISIT TRACKING (12 MO.) 07/06/2024 01:47 [facility] [place] TYPE: Emergency COMPLAINT: - DIFFICULTY BREATHING 07/03/2024 18:29 [facility] [place] TYPE: Emergency COMPLAINT: - SHORTNESS OF BREATH INPATIENT VISIT TRACKING (12 MO.) No inpatient visits to display in this time frame [email or web address]
[2024-07-06] MEDS ORDERED: CLINDAMYCIN PHOSPHATE/D5W 600 MG/50 ML PIGGYBACK IV ONE (02:00)
[2024-07-06] MEDS ORDERED: levoFLOXacin 500 MG PIGGYBACK IV ONE (02:00)
[2024-07-06] MEDS ORDERED: ALBUTEROL/IPRATROPIUM 3 ML NEB INH ONE (02:00)
[2024-07-06 02:02] LABS: LYMPHOCYTES 1.4 % (24-44)
[2024-07-06 02:04] LABS: EOSINOPHILS 0.9 % (0-6); HEMATOCRIT 38.2 % (35.0-50.0); MCV 88.2 fl (81-99); MONOCYTES 5.2 % (0-12); NEUTROPHILS 91.5 % (39-80); PLATELET COUNT 260 K/uL (140-440); RBC 4.33 M/ul (4.3-5.7); RDW 15.4 (10.5-15.0)
[2024-07-06 02:42] LABS: ALBUMIN/GLOBULIN RATIO 0.7 (1.1-2.4); ANION GAP 16.6 (7-21); BILIRUBIN, TOTAL 0.8 ng/dL (0.2-1.0); BUN/CREATININE RATIO 15.55 (6.0-28.6); CALCIUM 8.6 mg/dL (8.5-10.1); CREATININE, SERUM 0.9 mg/dL (0.70-1.30); POTASSIUM 3.6 mmol/L (3.5-5.1); PROTEIN, TOTAL 7.3 g/dL (6.4-8.2)
[2024-07-06] MEDS ORDERED: CLEOCIN HCL300 MG PO (03:10)
[2024-07-06 04:21] VITALS: BP 110/73
== END 2024-07-06 04:21 | disposition home or self-care (01) ==
LOC: ED 01:46
PROVIDERS: Family Medicine
DX: J69.0 Pneumonitis due to inhalation of food and vomit (principal); I25.2 Old myocardial infarction; G20.A1 Parkinson's disease without dyskinesia, without mention of fluctuations; Z87.891 Personal history of nicotine dependence; Z88.0 Allergy status to penicillin; Z79.899 Other long term (current) drug therapy; Z79.82 Long term (current) use of aspirin; Z95.5 Presence of coronary angioplasty implant and graft
CPT/HCPCS: 36415; 71045; 80053; 85025; 94640; 96365; 96367; 99285-25; J1956